=== PATIENT | male | born 1960 | race Caucasian/White ===

== ENCOUNTER 2018-02-17 09:48 | Emergency (ER) | payer OTHER ==
[~2018-02-17] VITALS: Ht 188 cm; Wt 117.9 kg
[~2018-02-17 09:48] MED LIST: AMLO5; CARV25; CARV25 PO; DIGO.125 PO; DIGO.25; FURO20; LORA10 PO; Prinivil10 MG PO; SPIR25; SPIR25 PO; TORSE20 PO; Toprol Xl50 MG PO; WARF5
[2018-02-17 10:35] LABS: BASOPHILS ABSOLUTE AUTO 0.02 K/mm3 (0.00-0.23); BASOPHILS PERCENT AUTO 0 % (0-2); EOSINOPHILS ABSOLUTE AUTO 0.12 K/mm3 (0.00-0.68); EOSINOPHILS PERCENT AUTO 2 % (0-6); Hematocrit 38.1 % (37.0-53.0); Hemoglobin 12.3 g/dL (13.5-17.5); IMMATURE GRAN ABSOLUTE AUTO 0.02 K/mm3 (0.00-0.10); IMMATURE GRAN PERCENT AUTO 0 % (0-1); LYMPHOCYTES ABSOLUTE AUTO 1.66 K/mm3 (0.84-5.20); LYMPHOCYTES PERCENT AUTO 22 % (21-46); MONOCYTES ABSOLUTE AUTO 0.59 K/mm3 (0.16-1.47); MONOCYTES PERCENT AUTO 8 % (4-13); Mean Corpuscular HGB 31.7 pg (26.0-34.0); Mean Corpuscular HGB Conc 32.3 g/dL (31.5-36.5); Mean Corpuscular Volume 98 fL (80-100); Mean Platelet Volume 10.1 fL (9.1-12.4); NEUTROPHILS ABSOLUTE AUTO 5.19 K/mm3 (1.96-9.15); NEUTROPHILS PERCENT AUTO 68 % (41-73); Platelet Count 169 K/mm3 (150-400); RDW Coefficient Variation 13.3 % (11.7-14.2); RDW Standard Deviation 48.4 fL (35.1-46.3); Red Blood Cell Count 3.88 M/mm3 (4.30-5.90)
[2018-02-17 10:47] LABS: International Normalized Ratio 2.61
[2018-02-17 10:54] LABS: Alanine Aminotransfer (ALT/SGP 22 U/L (12-78); Albumin, Blood 3.5 g/dL (3.4-5.0); Albumin/Globulin Ratio 0.9 (0.8-1.8); Alk Phos 67 U/L (50-136); Anion Gap 5 mmol/L (6-16); Aspartate Aminotrans (AST/SGOT 21 U/L (12-37); Bilirubin, Total 0.6 mg/dL (0.1-1.0); Blood Urea Nitrogen 16 mg/dL (8-24); Bun/Creatinine Ratio 24.6 (12.0-20.0); CO2, Blood 32 mmol/L (21-32); Calcium, Blood 8.5 mg/dL (8.5-10.1); Chloride, Blood 100 mmol/L (98-108); Creatinine, Blood 0.65 mg/dL (0.60-1.20); Globulin, Blood 3.7 g/dL (2.2-4.0); Glomerular Filtration Rate >60 (60-); Glucose, Blood 134 mg/dL (70-99); Potassium, Blood 4.1 mmol/L (3.5-5.5); Sodium, Blood 137 mmol/L (136-145); Total Protein, Blood 7.2 g/dL (6.4-8.2)
== END 2018-02-17 11:40 | disposition home or self-care (01) ==
LOC: ER 09:48
PROVIDERS: Emergency Medicine
DX: R20.0 Anesthesia of skin (principal); I48.91 Unspecified atrial fibrillation; Z88.0 Allergy status to penicillin; Z79.01 Long term (current) use of anticoagulants; Z79.899 Other long term (current) drug therapy; Z86.73 Personal history of transient ischemic attack (TIA), and cerebral infarction without residual deficits
CPT/HCPCS: 36415; 70450; 71045; 80053; 85025; 85610; 93005; 93010; 99284

== ENCOUNTER → 2019-01-05 | Outpatient (CLI) | payer OTHER ==
[2019-01-05 12:48] LABS: BASOPHILS ABSOLUTE AUTO 0.02 K/mm3 (0.00-0.23); BASOPHILS PERCENT AUTO 0 % (0-2); EOSINOPHILS ABSOLUTE AUTO 0.11 K/mm3 (0.00-0.68); EOSINOPHILS PERCENT AUTO 2 % (0-6); Hematocrit 40.7 % (37.0-53.0); Hemoglobin 13.4 g/dL (13.5-17.5); IMMATURE GRAN ABSOLUTE AUTO 0.02 K/mm3 (0.00-0.10); IMMATURE GRAN PERCENT AUTO 0 % (0-1); LYMPHOCYTES ABSOLUTE AUTO 1.36 K/mm3 (0.84-5.20); LYMPHOCYTES PERCENT AUTO 18 % (21-46); MONOCYTES ABSOLUTE AUTO 0.55 K/mm3 (0.16-1.47); MONOCYTES PERCENT AUTO 7 % (4-13); Mean Corpuscular HGB 32.4 pg (26.0-34.0); Mean Corpuscular HGB Conc 32.9 g/dL (31.5-36.5); Mean Corpuscular Volume 98 fL (80-100); NEUTROPHILS ABSOLUTE AUTO 5.49 K/mm3 (1.96-9.15); NEUTROPHILS PERCENT AUTO 73 % (41-73); Platelet Count 162 K/mm3 (150-400); RDW Coefficient Variation 13.8 % (11.7-14.2); RDW Standard Deviation 50.2 fL (35.1-46.3); Red Blood Cell Count 4.14 M/mm3 (4.30-5.90); White Blood Cell Count 7.55 K/mm3 (4.00-11.30)
[2019-01-05 13:02] LABS: Alanine Aminotransfer (ALT/SGP 30 U/L (12-78); Albumin/Globulin Ratio 1.1 (0.8-1.8); Alk Phos 77 U/L (40-126); Anion Gap 7 mmol/L (6-16); Aspartate Aminotrans (AST/SGOT 27 U/L (12-37); Bilirubin, Total 0.9 mg/dL (0.1-1.0); Blood Urea Nitrogen 24 mg/dL (8-24); Bun/Creatinine Ratio 28.9 (12.0-20.0); CO2, Blood 34 mmol/L (21-32); Calcium, Blood 8.4 mg/dL (8.5-10.1); Chloride, Blood 99 mmol/L (98-108); Creatinine, Blood 0.83 mg/dL (0.60-1.20); Globulin, Blood 3.5 g/dL (2.2-4.0); Glomerular Filtration Rate >60 (60-); Glucose, Blood 128 mg/dL (70-99); Potassium, Blood 4.2 mmol/L (3.5-5.5); Sodium, Blood 140 mmol/L (136-145); Total Protein, Blood 7.5 g/dL (6.4-8.2); Troponin I 0.022 ng/mL (0.000-0.040)
[2019-01-05 13:36] LABS: International Normalized Ratio 1.55; Prothrombin Time Results 15.8 Sec (9.7-11.5)
[2019-01-05 13:50] LABS: Digoxin (Lanoxin) 0.41 ug/mL (0.80-2.00)
== END ==
LOC: LAB EV 12:39 → LAB SHORT 12:39
PROVIDERS: Emergency Medicine
DX: R06.02 Shortness of breath (principal)
CPT/HCPCS: 80053; 80162; 83880; 84484; 85025; 85379; 85610; 85730

== ENCOUNTER → 2019-01-14 | Outpatient (CLI) | payer OTHER ==
[2019-01-14 09:36] LABS: BASOPHILS ABSOLUTE AUTO 0.02 K/mm3 (0.00-0.23); BASOPHILS PERCENT AUTO 0 % (0-2); EOSINOPHILS ABSOLUTE AUTO 0.12 K/mm3 (0.00-0.68); EOSINOPHILS PERCENT AUTO 2 % (0-6); Hematocrit 40.7 % (37.0-53.0); Hemoglobin 13.1 g/dL (13.5-17.5); IMMATURE GRAN ABSOLUTE AUTO 0.02 K/mm3 (0.00-0.10); IMMATURE GRAN PERCENT AUTO 0 % (0-1); LYMPHOCYTES ABSOLUTE AUTO 1.26 K/mm3 (0.84-5.20); LYMPHOCYTES PERCENT AUTO 21 % (21-46); MONOCYTES ABSOLUTE AUTO 0.38 K/mm3 (0.16-1.47); MONOCYTES PERCENT AUTO 6 % (4-13); Mean Corpuscular HGB 31.9 pg (26.0-34.0); Mean Corpuscular HGB Conc 32.2 g/dL (31.5-36.5); Mean Corpuscular Volume 99 fL (80-100); Mean Platelet Volume 9.8 fL (9.1-12.4); NEUTROPHILS ABSOLUTE AUTO 4.15 K/mm3 (1.96-9.15); NEUTROPHILS PERCENT AUTO 70 % (41-73); Platelet Count 154 K/mm3 (150-400); RDW Coefficient Variation 13.5 % (11.7-14.2); RDW Standard Deviation 49.2 fL (35.1-46.3); Red Blood Cell Count 4.11 M/mm3 (4.30-5.90); White Blood Cell Count 5.95 K/mm3 (4.00-11.30)
[2019-01-14 10:05] LABS: Alanine Aminotransfer (ALT/SGP 32 U/L (12-78); Albumin/Globulin Ratio 1.1 (0.8-1.8); Alk Phos 83 U/L (40-126); Anion Gap 8 mmol/L (6-16); Aspartate Aminotrans (AST/SGOT 24 U/L (12-37); Bilirubin, Total 0.3 mg/dL (0.1-1.0); Blood Urea Nitrogen 22 mg/dL (8-24); Bun/Creatinine Ratio 25.6 (12.0-20.0); CO2, Blood 32 mmol/L (21-32); Calcium, Blood 9.3 mg/dL (8.5-10.1); Chloride, Blood 98 mmol/L (98-108); Creatinine, Blood 0.86 mg/dL (0.60-1.20); Globulin, Blood 3.5 g/dL (2.2-4.0); Glomerular Filtration Rate >60 (60-); Glucose, Blood 195 mg/dL (70-99); Potassium, Blood 4.4 mmol/L (3.5-5.5); Sodium, Blood 138 mmol/L (136-145); Thyroid Stimulating Hormone 1.539 uIU/mL (0.360-4.800); Total Protein, Blood 7.5 g/dL (6.4-8.2)
[2019-01-14 10:45] LABS: Digoxin (Lanoxin) 0.39 ug/mL (0.80-2.00)
== END | disposition home or self-care (01) ==
LOC: LAB EV 09:30 → LAB SHORT 09:30
PROVIDERS: Physician Assistant Medical
DX: R53.83 Other fatigue (principal); R06.00 Dyspnea, unspecified
CPT/HCPCS: 80053; 80162; 84443; 85025

== ENCOUNTER 2019-04-20 09:06 | Inpatient (IN) | payer OTHER ==
[~2019-04-20] VITALS: Ht 182.9 cm; Wt 120.5 kg
[~2019-04-20 09:06] MED LIST changes: -DIGO.125 PO; +LANOXIN250 MCG PO; -WARF5; +WARF5 PO
[2019-04-20 10:04] LABS: BASOPHILS ABSOLUTE AUTO 0.01 K/mm3 (0.00-0.23); BASOPHILS PERCENT AUTO 0 % (0-2); EOSINOPHILS ABSOLUTE AUTO 0.08 K/mm3 (0.00-0.68); EOSINOPHILS PERCENT AUTO 1 % (0-6); Hematocrit 40.1 % (37.0-53.0); Hemoglobin 12.3 g/dL (13.5-17.5); IMMATURE GRAN ABSOLUTE AUTO 0.01 K/mm3 (0.00-0.10); IMMATURE GRAN PERCENT AUTO 0 % (0-1); LYMPHOCYTES ABSOLUTE AUTO 1.13 K/mm3 (0.84-5.20); LYMPHOCYTES PERCENT AUTO 15 % (21-46); MONOCYTES ABSOLUTE AUTO 0.52 K/mm3 (0.16-1.47); MONOCYTES PERCENT AUTO 7 % (4-13); Mean Corpuscular HGB 31.3 pg (26.0-34.0); Mean Corpuscular HGB Conc 30.7 g/dL (31.5-36.5); Mean Corpuscular Volume 102 fL (80-100); Mean Platelet Volume 10.3 fL (9.1-12.4); NEUTROPHILS ABSOLUTE AUTO 5.72 K/mm3 (1.96-9.15); NEUTROPHILS PERCENT AUTO 77 % (41-73); Platelet Count 153 K/mm3 (150-400); RDW Coefficient Variation 13.9 % (11.7-14.2); RDW Standard Deviation 52.1 fL (35.1-46.3); Red Blood Cell Count 3.93 M/mm3 (4.30-5.90); White Blood Cell Count 7.47 K/mm3 (4.00-11.30)
[2019-04-20 10:18] LABS: International Normalized Ratio 3.52; Prothrombin Time Results 33.3 Sec (9.7-11.5)
[2019-04-20 10:19] LABS: Alanine Aminotransfer (ALT/SGP 34 U/L (12-78); Albumin, Blood 3.6 g/dL (3.4-5.0); Alk Phos 73 U/L (50-136); Anion Gap 3 mmol/L (6-16); Aspartate Aminotrans (AST/SGOT 28 U/L (12-37); Bilirubin, Total 0.5 mg/dL (0.1-1.0); Blood Urea Nitrogen 14 mg/dL (8-24); Bun/Creatinine Ratio 21.1 (12.0-20.0); CO2, Blood 32 mmol/L (21-32); Calcium, Blood 8.3 mg/dL (8.5-10.1); Chloride, Blood 105 mmol/L (98-108); Creatinine, Blood 0.67 mg/dL (0.60-1.20); Globulin, Blood 3.6 g/dL (2.2-4.0); Glomerular Filtration Rate >60 (60-); Glucose, Blood 162 mg/dL (70-99); Potassium, Blood 4.6 mmol/L (3.5-5.5); Sodium, Blood 140 mmol/L (136-145); Total Protein, Blood 7.2 g/dL (6.4-8.2); Troponin I <0.015 ng/mL (0.000-0.040)
[2019-04-20 10:20] LABS: Base Excess Venous 6.4 mmol/L; Bicarbonate Venous 29.1 mmol/L (24.0-30.0); PCO2 Venous 53.7 mmHg (38-42); PO2 Venous 158 mmHg (38-42); pH Blood Venous 7.38 (7.34-7.37)
[2019-04-20 10:32] LABS: Digoxin (Lanoxin) 0.39 ug/mL (0.80-2.00)
[2019-04-20] MEDS ORDERED: LISI5 PO (11:15)
[2019-04-20] MEDS ORDERED: SIMV40 PO (11:19)
[2019-04-20] MEDS ORDERED: PARO20 PO (11:20)
[2019-04-20] MEDS ORDERED: CLARITIN10 MG PO (12:39)
[2019-04-20 16:22] LABS: PCO2 Arterial 67.8 mmHg (35-45); PO2 Arterial 59.8 mmHg (80-100); pH Blood Arterial 7.33 (7.35-7.45)
--- NOTE | 2019-04-20 18:04 | NUR ---
TRANSFER NOTE RECEIVED REPORT FROM ED NURSE ZULMA. 59 YR OLD MALE ADMITTED FOR CHF EXACERBATION/SOB. FULL CODE. FLUID OVERLOAD DUE TO FORGETTING DIURETICS FOR 3-4 DAYS. CARDIAC DIET. CO2 WAS 54, NOW 59.8 - PT PUT ON CPAP W/3 LPM O2 BLEED IN. CONTINUOUS PULSE OX. O2 SAT IS NOW 94%. PT IS INDEPENDENT, LIVES AT HOME W/FAMILY. ON WARFARIN. SCD'S FOR DVT PREVENTION. PACEMAKER IN 10/25/07. HX:CHF, BPH, CARDIOMYOPATHY, AFIB, PAVAN, HYPERLIPIDEMIA. MOUTH BREATHER. USES CPAP W/3 LPM O2 BLEED IN AT NIGHT. ROOM AIR DURING DAYTIME. PT TRANSFERED TO FLOOR WNL. ORIENTED TO UNIT.
--- NOTE | 2019-04-21 04:02 | NUR ---
NOC SHIFT SUMMARY PT IS PLEASANT AND COOPERATIVE WITH CARE. ADMITTED FOR CHF EXACERBATION/FLUID OVERLOAD AFTER NOT TAKING DIURETIC FOR PRIOR 4 DAYS. ON TELE SHOWS AFIB RATE 88 ON LAST CHECK. USES CPAP WITH 3L O2 BLEED IN. PT HAS SLEPT MOST OF NIGHT. NO COMPLAINTS OF PAIN OR DISCOMFORT. AAOX4. RESP ARE EVEN AND UNLABORED. PRESENTLY APPEARS TO BE SLEEPING AND IN NO ACUTE DISTRESS. VSS. WILL CONTINUE TO MONITOR.
[2019-04-21 05:35] LABS: BASOPHILS ABSOLUTE AUTO 0.02 K/mm3 (0.00-0.23); BASOPHILS PERCENT AUTO 0 % (0-2); EOSINOPHILS ABSOLUTE AUTO 0.11 K/mm3 (0.00-0.68); EOSINOPHILS PERCENT AUTO 1 % (0-6); Hematocrit 41.8 % (37.0-53.0); Hemoglobin 12.8 g/dL (13.5-17.5); IMMATURE GRAN ABSOLUTE AUTO 0.04 K/mm3 (0.00-0.10); IMMATURE GRAN PERCENT AUTO 0 % (0-1); LYMPHOCYTES ABSOLUTE AUTO 1.26 K/mm3 (0.84-5.20); LYMPHOCYTES PERCENT AUTO 14 % (21-46); MONOCYTES ABSOLUTE AUTO 0.69 K/mm3 (0.16-1.47); MONOCYTES PERCENT AUTO 8 % (4-13); Mean Corpuscular HGB Conc 30.6 g/dL (31.5-36.5); Mean Platelet Volume 10.2 fL (9.1-12.4); NEUTROPHILS ABSOLUTE AUTO 6.83 K/mm3 (1.96-9.15); NEUTROPHILS PERCENT AUTO 76 % (41-73); Platelet Count 156 K/mm3 (150-400); RDW Standard Deviation 54.1 fL (35.1-46.3); White Blood Cell Count 8.95 K/mm3 (4.00-11.30)
[2019-04-21 05:36] LABS: Mean Corpuscular Volume 105 fL (80-100)
[2019-04-21 05:57] LABS: Anion Gap 3 mmol/L (6-16); Blood Urea Nitrogen 15 mg/dL (8-24); Bun/Creatinine Ratio 20.9 (12.0-20.0); CO2, Blood 36 mmol/L (21-32); Calcium, Blood 8.1 mg/dL (8.5-10.1); Chloride, Blood 100 mmol/L (98-108); Creatinine, Blood 0.72 mg/dL (0.60-1.20); Glomerular Filtration Rate >60 (60-); Glucose, Blood 113 mg/dL (70-99); Potassium, Blood 4.6 mmol/L (3.5-5.5); Sodium, Blood 139 mmol/L (136-145)
[2019-04-21 09:50] LABS: International Normalized Ratio 3.55; Prothrombin Time Results 33.5 Sec (9.7-11.5)
--- NOTE | 2019-04-21 11:18 | NUR ---
8 BEATS VTACH [employer], COLBY MEEK CALLED & INFORMED THIS RN OF 8 BEATS OF VTACH FOR THE PT. PT REMIANS A SYMPTOMATIC & CONVERTED BACK TO AFIB, WHICH WAS PREVIOUS RHYTHM BEFORE THE BEATS OF VTACH. DR. AGUERO CALLED & NOTIFIED OF EVENT. WILL CONTINUE TO MONITOR.
--- NOTE | 2019-04-21 18:06 | NUR ---
SHIFT SUMMARY PT INSTRUCTED ON THIS IMPORTANCE OF VOIDING IN URINAL SO ACCURATE OUTPUT CAN BE CALULATED. PT AGREED. MORNING DOSE OF CARVEILOL HELD DUE TO SBP 108. DR. RAYA AWARE & STATED SHE WILL REVIEW MEDICATION DOSES. EVENING DOSE GIVEN. NO OTHER CHANGES IN ASSESSMENT AT THIS TIME. VSS. WILL CONTINUE TO MONITOR UNTIL TURNOVER IS COMPLETE
--- NOTE | 2019-04-22 04:45 | NUR ---
JAVA TECHNICAL ARCHITECT SUMMARY NO ACUTE CHANGES THIS SHIFT. PT AAOX4 AND COOPERATIVE WITH CARE. INDEPENDENT TO THE BATHROOM. PT HAS VOIDED SEVERAL TIMES THROUGH THE NIGHT AND IS IN A NEGATIVE FLUID BALANCE AT THIS POINT. DENIES PAIN, N/V. ON 3L O2 VIA NC WHILE AWAKE AND USES CPAP AT NIGHT, O2 SATS MAINTAINING OVER 90% BUT DO DROP DOWN TO 80'S AT TIMES WITH AMBULATION. OTHER VSS, WILL CONTINUE TO MONITOR
[2019-04-22 05:17] LABS: International Normalized Ratio 2.51; Prothrombin Time Results 24.5 Sec (9.7-11.5)
--- NOTE | 2019-04-22 08:56 | NUR ---
[address] RAYA CALLED & NOTIFIED OF PT EPISODE OF [address] RAYA INFORMED THAT PT COREG WAS HELD DUE TO HYPOTENSION SBP 91. DR. RAYA TO CHANGE COREG DOSAGE TO 12.5 BID & OK TO GIVE WITH CURRENT BP. PT ASYMPTOMATIC & HAS CONVERTED BACK TO AFIB IN THE 80-90S. WILL CONTINUE TO MONITOR.
--- NOTE | 2019-04-22 16:27 | NUR ---
DR DOWNS'S OFFICE NOTIFIED OF CONSULT.
[2019-04-22 16:33] LABS: PCO2 Arterial 82.8 mmHg (35-45); PO2 Arterial 105 mmHg (80-100); pH Blood Arterial 7.32 (7.35-7.45)
[2019-04-22 16:49] LABS: BASOPHILS ABSOLUTE AUTO 0.02 K/mm3 (0.00-0.23); BASOPHILS PERCENT AUTO 0 % (0-2); EOSINOPHILS ABSOLUTE AUTO 0.06 K/mm3 (0.00-0.68); EOSINOPHILS PERCENT AUTO 1 % (0-6); Hematocrit 40.8 % (37.0-53.0); Hemoglobin 12.2 g/dL (13.5-17.5); IMMATURE GRAN ABSOLUTE AUTO 0.02 K/mm3 (0.00-0.10); IMMATURE GRAN PERCENT AUTO 0 % (0-1); LYMPHOCYTES ABSOLUTE AUTO 1.48 K/mm3 (0.84-5.20); LYMPHOCYTES PERCENT AUTO 16 % (21-46); MONOCYTES PERCENT AUTO 12 % (4-13); Mean Corpuscular HGB 31.9 pg (26.0-34.0); Mean Corpuscular HGB Conc 29.9 g/dL (31.5-36.5); Mean Corpuscular Volume 107 fL (80-100); Mean Platelet Volume 9.9 fL (9.1-12.4); NEUTROPHILS ABSOLUTE AUTO 6.53 K/mm3 (1.96-9.15); NEUTROPHILS PERCENT AUTO 71 % (41-73); Platelet Count 156 K/mm3 (150-400); RDW Coefficient Variation 13.6 % (11.7-14.2); Red Blood Cell Count 3.82 M/mm3 (4.30-5.90); White Blood Cell Count 9.21 K/mm3 (4.00-11.30)
[2019-04-22 17:01] LABS: Alanine Aminotransfer (ALT/SGP 26 U/L (12-78); Albumin, Blood 3.5 g/dL (3.4-5.0); Alk Phos 66 U/L (50-136); Anion Gap 1 mmol/L (6-16); Aspartate Aminotrans (AST/SGOT 16 U/L (12-37); Bilirubin, Total 0.6 mg/dL (0.1-1.0); Blood Urea Nitrogen 22 mg/dL (8-24); Bun/Creatinine Ratio 26.1 (12.0-20.0); CO2, Blood 40 mmol/L (21-32); Calcium, Blood 8.5 mg/dL (8.5-10.1); Chloride, Blood 96 mmol/L (98-108); Creatinine, Blood 0.84 mg/dL (0.60-1.20); Globulin, Blood 3.5 g/dL (2.2-4.0); Glomerular Filtration Rate >60 (60-); Glucose, Blood 106 mg/dL (70-99); Potassium, Blood 4.2 mmol/L (3.5-5.5); Sodium, Blood 137 mmol/L (136-145)
--- NOTE | 2019-04-22 17:25 | NUR ---
SHIFT SUMMARY/CRITICAL PCO2 PT HAD CRITICAL PCO2 OF 82.8. SILK SCREEN PROCESSOR, MAAME WILLS & DR. RAYA NOTIFIED. DR. RAYA ORDERED TO TITRATE O2 DOWN MUCH POSSIBLE. PT NOW TOLERATING 3L O2 VIA HIGH FLOW NC. CHEST X RAY COMPLETED. & CARDIO CONSULT PLACED. NO OTHER CHANGES IN ASSESSMENT. VSS. WILL CONTINUE TO MONITOR UNTIL TURNOVER IS COMPLETE.
[2019-04-22 18:38] LABS: Troponin I <0.015 ng/mL (0.000-0.040)
[2019-04-22 18:39] LABS: Thyroid Stimulating Hormone 0.989 uIU/mL (0.360-4.800)
[2019-04-23 04:54] LABS: BASOPHILS ABSOLUTE AUTO 0.01 K/mm3 (0.00-0.23); BASOPHILS PERCENT AUTO 0 % (0-2); EOSINOPHILS ABSOLUTE AUTO 0.07 K/mm3 (0.00-0.68); EOSINOPHILS PERCENT AUTO 1 % (0-6); Hemoglobin 12.7 g/dL (13.5-17.5); IMMATURE GRAN ABSOLUTE AUTO 0.03 K/mm3 (0.00-0.10); IMMATURE GRAN PERCENT AUTO 0 % (0-1); LYMPHOCYTES ABSOLUTE AUTO 1.41 K/mm3 (0.84-5.20); LYMPHOCYTES PERCENT AUTO 15 % (21-46); MONOCYTES ABSOLUTE AUTO 0.79 K/mm3 (0.16-1.47); MONOCYTES PERCENT AUTO 9 % (4-13); Mean Corpuscular HGB Conc 30.2 g/dL (31.5-36.5); Mean Corpuscular Volume 106 fL (80-100); Mean Platelet Volume 9.9 fL (9.1-12.4); NEUTROPHILS ABSOLUTE AUTO 6.86 K/mm3 (1.96-9.15); NEUTROPHILS PERCENT AUTO 75 % (41-73); Platelet Count 152 K/mm3 (150-400); RDW Coefficient Variation 13.4 % (11.7-14.2); RDW Standard Deviation 52.8 fL (35.1-46.3); Red Blood Cell Count 3.97 M/mm3 (4.30-5.90); White Blood Cell Count 9.17 K/mm3 (4.00-11.30)
[2019-04-23 05:07] LABS: International Normalized Ratio 2.07; Prothrombin Time Results 20.5 Sec (9.7-11.5)
[2019-04-23 05:16] LABS: Anion Gap 2 mmol/L (6-16); Blood Urea Nitrogen 18 mg/dL (8-24); Bun/Creatinine Ratio 27.4 (12.0-20.0); CHOL/HDL RATIO 2.1; CO2, Blood 40 mmol/L (21-32); Calcium, Blood 8.2 mg/dL (8.5-10.1); Chloride, Blood 95 mmol/L (98-108); Cholesterol 77 mg/dL (50-200); Creatinine, Blood 0.66 mg/dL (0.60-1.20); Glomerular Filtration Rate >60 (60-); Glucose, Blood 114 mg/dL (70-99); HDL Cholesterol 37 mg/dL (>39); LDL/HDL RATIO 0.8; Low Density Lipoprotein Chol 29 mg/dL (0-110); Potassium, Blood 4.1 mmol/L (3.5-5.5); Sodium, Blood 137 mmol/L (136-145); Triglycerides 56 mg/dL (30-160); Very Low Density Lipoprot Chol 11 mg/dL (6-32)
--- NOTE | 2019-04-23 06:50 | NUR ---
cpap, call light in reach, sitting up to help breathe most of the shift, denied pain, no major change in condition during shift. will continue to monitor and treat until complete bsr with day staff.
--- NOTE | 2019-04-23 17:36 | NUR ---
SHIFT SUMMARY 59 YR OLD MALE ADMITTED FOR CHF EXACERBATION. FULL CODE. 20 RT AC. 3 LPM O2, CPAP AT NIGHT. PT SEEN BY CARDIOLOGY CONSULT TODAY. TELE SHOWS AFIB RUNNING AT 79 BPM W/PVCS - THE PT'S NORMAL TREND. INDEPENDENT IN ROOM. 2 G LOW SODIUM DIET. HX: BPH, CHF, AFIB, DEFIBRILLATOR IMPLANT, PAVAN. PT WILL DC HOME, DO AN OUTPT STRESS TEST
[2019-04-24 05:20] LABS: International Normalized Ratio 1.98; Prothrombin Time Results 19.7 Sec (9.7-11.5)
--- NOTE | 2019-04-24 06:44 | NUR ---
much more interactive and animated today than yesterday, call light in reach, 2L 02 when not on cpap or d-sats, saline locked, will continue to monitor and carefor until complete bsr with day staff.
[2019-04-24 07:07] LABS: Anion Gap 2 mmol/L (6-16); Blood Urea Nitrogen 20 mg/dL (8-24); Bun/Creatinine Ratio 33.2 (12.0-20.0); CO2, Blood 41 mmol/L (21-32); Calcium, Blood 8.6 mg/dL (8.5-10.1); Chloride, Blood 96 mmol/L (98-108); Glomerular Filtration Rate >60 (60-); Glucose, Blood 113 mg/dL (70-99); Potassium, Blood 3.8 mmol/L (3.5-5.5); Sodium, Blood 139 mmol/L (136-145)
[2019-04-24] MEDS ORDERED: CARV25 PO (14:30)
[2019-04-24] MEDS ORDERED: ATOR40TA PO (14:34)
[2019-04-24] MEDS ORDERED: ENTRESTO 24 MG1 EACH PO (14:37)
--- NOTE | 2019-04-24 15:55 | NUR ---
DISCHARGE NOTE IV DC'D WNL. PT PROVIDED W/HARDCOPY AND VERBAL INSTRUCTIONS FOR DC RE: DIAGNOSES, DISCHARGE MEDICATIONS, AND FOLLOW UP APPOINTMENTS. JOSE MARTIN ARRIVED W/O2. HOME O2 EVAL PERFORMED. MEDS FAXED TO PREFERED PHARMACY. PT DRESSED IN PERSONAL CLOTHES, PERSONAL POSSESSIONS GATHERED. PT ASSISTED OUT BY BLOOD SPLATTER ANALYST VIA WHEELCHAIR. PT HAD NO FURTHER QUESTIONS
== END 2019-04-24 15:26 | disposition home or self-care (01) | DRG 291 ==
LOC: ER 09:06 → MEDS 09:07 → ERHOLD 09:07 → MEDS 16:28
PROVIDERS: Emergency Medicine; Internal Medicine; Internal Medicine Cardiovascular Disease; ADMIT Family Medicine
DX: I11.0 Hypertensive heart disease with heart failure (principal); J96.21 Acute and chronic respiratory failure with hypoxia; J96.22 Acute and chronic respiratory failure with hypercapnia; I47.2 Ventricular tachycardia; I50.23 Acute on chronic systolic (congestive) heart failure; I48.2 Chronic atrial fibrillation; Z79.01 Long term (current) use of anticoagulants; G47.33 Obstructive sleep apnea (adult) (pediatric); I27.20 Pulmonary hypertension, unspecified; E78.5 Hyperlipidemia, unspecified; E66.9 Obesity, unspecified; Z91.14 Patient's other noncompliance with medication regimen; I95.9 Hypotension, unspecified; F10.10 Alcohol abuse, uncomplicated; Z95.810 Presence of automatic (implantable) cardiac defibrillator; Z86.73 Personal history of transient ischemic attack (TIA), and cerebral infarction without residual deficits; E87.6 Hypokalemia; Z68.35 Body mass index [BMI] 35.0-35.9, adult
CPT/HCPCS: 36415; 36600; 71045; 71046; 80048; 80053; 80061; 80162; 82803; 83880; 84443; 84484; 85025; 85379; 85610; 93005; 93010; 93306; 94660; 94761; 94762; 96374; 96375; 96376; 98960; 99285-25; A9270; G0378; J1940; J2405

== ENCOUNTER 2019-06-18 10:44 | Day surgery (SDC) | payer OTHER ==
[~2019-06-18] VITALS: Ht 182.9 cm; Wt 116.0 kg
[~2019-06-18 10:44] MED LIST changes: +ATOR40TA PO; +CLARITIN10 MG PO; +ENTRESTO 24 MG1 EACH PO; +LISI5 PO; +PARO20 PO; +SIMV40 PO
[2019-06-18 12:19] LABS: International Normalized Ratio 1.63; Prothrombin Time Results 16.5 Sec (9.7-11.5)
--- NOTE | 2019-06-18 16:30 | NUR ---
PT DISCHARGE INSTRUCTIONS GONE OVER WITH PT AND MOTHER, BOTH VERBALIZE UNDERSTANDING. SITE WITHOUT BLEEDING, DOT DRESSING IN PLACE. PT DISCHARGED PER W/C WITH NURSE TO PRIVATE VEHICLE.
== END 2019-06-18 16:30 | disposition home or self-care (01) ==
LOC: MHTC 10:44
PROVIDERS: Internal Medicine Cardiovascular Disease
DX: I25.10 Atherosclerotic heart disease of native coronary artery without angina pectoris (principal); I42.9 Cardiomyopathy, unspecified; I11.0 Hypertensive heart disease with heart failure; I50.22 Chronic systolic (congestive) heart failure; I27.20 Pulmonary hypertension, unspecified; I48.91 Unspecified atrial fibrillation; G47.33 Obstructive sleep apnea (adult) (pediatric); E78.5 Hyperlipidemia, unspecified; E66.9 Obesity, unspecified; Z86.73 Personal history of transient ischemic attack (TIA), and cerebral infarction without residual deficits; Z99.89 Dependence on other enabling machines and devices; Z79.01 Long term (current) use of anticoagulants; Z79.899 Other long term (current) drug therapy; Z88.0 Allergy status to penicillin; Z68.34 Body mass index [BMI] 34.0-34.9, adult
CPT/HCPCS: 36415; 85610; 93458; 99152; 99153; C1769; C1894; J1644; J2250; J3010; J7030; Q9967

== ENCOUNTER 2023-08-05 08:41 | Inpatient (IN) | payer MEDICARE, OTHER ==
[~2023-08-05] VITALS: Ht 182.9 cm; Wt 111.1 kg
[~2023-08-05 08:41] MED LIST changes: -CLARITIN10 MG PO; +LORA10ER PO
[2023-08-05 10:33] LABS: BASOPHILS ABSOLUTE AUTO 0.04 K/mm3 (0.00-0.23); BASOPHILS PERCENT AUTO 0 % (0-2); EOSINOPHILS ABSOLUTE AUTO 0.03 K/mm3 (0.00-0.68); EOSINOPHILS PERCENT AUTO 0 % (0-6); Hematocrit 43.5 % (37.0-53.0); Hemoglobin 13.9 g/dL (13.5-17.5); IMMATURE GRAN ABSOLUTE AUTO 0.05 K/mm3 (0.00-0.10); IMMATURE GRAN PERCENT AUTO 0 % (0-1); LYMPHOCYTES ABSOLUTE AUTO 1.29 K/mm3 (0.84-5.20); LYMPHOCYTES PERCENT AUTO 9 % (21-46); MONOCYTES ABSOLUTE AUTO 0.56 K/mm3 (0.16-1.47); MONOCYTES PERCENT AUTO 4 % (4-13); Mean Corpuscular HGB 30.2 pg (26.0-34.0); Mean Corpuscular Volume 95 fL (80-100); Mean Platelet Volume 10.4 fL (9.1-12.4); NEUTROPHILS ABSOLUTE AUTO 12.23 K/mm3 (1.96-9.15); NEUTROPHILS PERCENT AUTO 86 % (41-73); Platelet Count 261 K/mm3 (150-400); RDW Coefficient Variation 13.7 % (11.7-14.2); RDW Standard Deviation 47.5 fL (35.1-46.3)
[2023-08-05] MEDS ORDERED: LISINOPRIL2.5 MG PO (10:36)
[2023-08-05 10:56] LABS: Albumin, Blood 3.9 g/dL (3.4-5.0); Bilirubin, Total 0.7 mg/dL (0.1-1.0); Bun/Creatinine Ratio 18.9 (12.0-20.0); Calcium, Blood 9.2 mg/dL (8.5-10.1); Creatinine, Blood 0.9 mg/dL (0.60-1.20); Globulin, Blood 4.1 g/dL (2.2-4.0); Potassium, Blood 3.6 mmol/L (3.5-5.5)
[2023-08-05 13:04] LABS: Source, Urine Clean Catch
[2023-08-05 13:08] LABS: Appearance, Urine Clear (Clear); Bilirubin, Urine Neg (Neg); Blood, Urine Neg (Neg); Color, Urine Yellow (P-Yellow); Glucose Qualitative, Urine Neg (Neg); Ketones, Urine Neg (Neg); Leukocyte Esterase, Urine Neg (Neg); Nitrite, Urine Neg (Neg); Protein, Urine 2+ (Neg); Urobilinogen, Urine NORM (Normal)
[2023-08-05 13:28] LABS: Bacteria Not Seen /hpf; Red Blood Cells, Urine Not Seen /hpf (0-2); Squamous Epithelial Cells Not Seen /hpf (Few); White Blood Cells, Urine 0-2 /hpf (0-5)
[2023-08-05 16:29] VITALS: BP 104/82
[2023-08-05 16:33] LABS: Anti-Xa UFH, PHA Monitoring <0.10 IU/mL; International Normalized Ratio 2.52; Prothrombin Time Results 25.1 Sec (9.7-11.5)
[2023-08-05] MEDS ORDERED: Coumadin2.5 MG PO (17:00)
--- NOTE | 2023-08-05 17:13 | NUR ---
Pt arrived to 341 via wheelchair with brother in attendence, a/ox4, pleasant and cooperative with care, follows commands well, denies pain at this time, lungs are clear t/o, resp even and unlabored, no cough noted, hrirr, pt has an implanted aicd but states it's turned off, no edema noted, ppp +1, piv to rac, site is clear and patent, btx4, reports reg bowel/bladder, skin c/w/d, tom fitzpatrick, up indep in room. oriented to room layout and call system, call light in reach.
[2023-08-06 03:37] VITALS: BP 124/72
--- NOTE | 2023-08-06 04:29 | NUR ---
SHIFT SUMMARY A/OX4. ROOM AIR, CPAP AT NIGHT. CONTINUOUS PULSE OX. INDEPENDENT IN ROOM. DENIES CHEST PAIN, SOB. PT IS A HARD STICK WILL POSSIBLY NEED A POWERGLIDE PENDING POSSIBLE SURGERY. PRN OXYCODONE GIVEN X1 FOR ABDOMINAL PAIN. TRENDING LACTIC, NOW NORMAL. PENDING HEPARIN DRIP ONCE INR IS LESS THAN 2, LABS THIS AM. ABLE TO MAKE NEEDS KNOWN, CALL LIGHT IN REACH, BED LOCKED IN LOW POSITION
[2023-08-06 04:54] LABS: BASOPHILS ABSOLUTE AUTO 0.04 K/mm3 (0.00-0.23); BASOPHILS PERCENT AUTO 0 % (0-2); EOSINOPHILS ABSOLUTE AUTO 0.04 K/mm3 (0.00-0.68); EOSINOPHILS PERCENT AUTO 0 % (0-6); Hemoglobin 12.8 g/dL (13.5-17.5); IMMATURE GRAN ABSOLUTE AUTO 0.04 K/mm3 (0.00-0.10); IMMATURE GRAN PERCENT AUTO 0 % (0-1); LYMPHOCYTES ABSOLUTE AUTO 1.64 K/mm3 (0.84-5.20); LYMPHOCYTES PERCENT AUTO 13 % (21-46); MONOCYTES ABSOLUTE AUTO 1.41 K/mm3 (0.16-1.47); MONOCYTES PERCENT AUTO 11 % (4-13); Mean Corpuscular HGB 29.8 pg (26.0-34.0); Mean Corpuscular Volume 93 fL (80-100); Mean Platelet Volume 10.5 fL (9.1-12.4); NEUTROPHILS ABSOLUTE AUTO 9.71 K/mm3 (1.96-9.15); NEUTROPHILS PERCENT AUTO 76 % (41-73); Platelet Count 202 K/mm3 (150-400); RDW Coefficient Variation 14.1 % (11.7-14.2); RDW Standard Deviation 48.6 fL (35.1-46.3); White Blood Cell Count 12.88 K/mm3 (4.00-11.30)
[2023-08-06 05:04] LABS: International Normalized Ratio 2.27; Prothrombin Time Results 22.8 Sec (9.7-11.5)
[2023-08-06 05:10] LABS: Albumin, Blood 3.1 g/dL (3.4-5.0); Anion Gap 5 mmol/L (6-16); Blood Urea Nitrogen 16 mg/dL (8-24); Bun/Creatinine Ratio 20.5 (12.0-20.0); CO2, Blood 29 mmol/L (21-32); Calcium, Blood 8.1 mg/dL (8.5-10.1); Chloride, Blood 105 mmol/L (98-108); Creatinine, Blood 0.78 mg/dL (0.60-1.20); Glomerular Filtration Rate 100 (60-); Glucose, Blood 114 mg/dL (70-99); Magnesium, Blood 2.3 mg/dL (1.6-2.4); Phosphorus, Blood 3.7 mg/dL (2.5-4.9); Sodium, Blood 139 mmol/L (136-145)
[2023-08-06 07:32] VITALS: BP 105/64
[2023-08-06 16:04] VITALS: BP 116/80
[2023-08-06 16:32] LABS: International Normalized Ratio 2.61
--- NOTE | 2023-08-06 17:16 | NUR ---
SHIFT SUMMARY- PT IS A/O, PLESANT AND COOPERATIVE. HE IS INDIPENDENT IN THE ROOM. RECIEVED PAIN MEDICATION NEEDED. HE WILL HAVE SURGERY TOMORRW AND WILL BE NPO AFTERMIDNIGHT. HE IS EATING AND DRINKING WELL THIS SHIFT. HE IS AMBULATING TO THE RESTROOM INDEPENDENTLY. HIS BED IS IN THE LOW POSITION AND CALL LIGHT IS WITHIN REACH.
[2023-08-06 19:25] VITALS: BP 110/58
[2023-08-07 04:36] VITALS: BP 127/84
[2023-08-07 05:35] LABS: BASOPHILS ABSOLUTE AUTO 0.02 K/mm3 (0.00-0.23); BASOPHILS PERCENT AUTO 0 % (0-2); EOSINOPHILS ABSOLUTE AUTO 0.06 K/mm3 (0.00-0.68); EOSINOPHILS PERCENT AUTO 1 % (0-6); Hematocrit 38.9 % (37.0-53.0); Hemoglobin 12.5 g/dL (13.5-17.5); IMMATURE GRAN ABSOLUTE AUTO 0.04 K/mm3 (0.00-0.10); IMMATURE GRAN PERCENT AUTO 0 % (0-1); LYMPHOCYTES PERCENT AUTO 9 % (21-46); MONOCYTES ABSOLUTE AUTO 0.82 K/mm3 (0.16-1.47); MONOCYTES PERCENT AUTO 6 % (4-13); Mean Corpuscular HGB Conc 32.1 g/dL (31.5-36.5); Mean Corpuscular Volume 93 fL (80-100); Mean Platelet Volume 9.9 fL (9.1-12.4); NEUTROPHILS ABSOLUTE AUTO 10.94 K/mm3 (1.96-9.15); NEUTROPHILS PERCENT AUTO 84 % (41-73); Platelet Count 181 K/mm3 (150-400); RDW Coefficient Variation 13.9 % (11.7-14.2); Red Blood Cell Count 4.17 M/mm3 (4.30-5.90); White Blood Cell Count 13.08 K/mm3 (4.00-11.30)
[2023-08-07 05:49] LABS: International Normalized Ratio 1.71; Prothrombin Time Results 17.4 Sec (9.7-11.5)
--- NOTE | 2023-08-07 06:00 | NUR ---
SUMMARY: PT A/OX4, IS INDEPENDENT IN ROOM AND CALLS APPROPRIATELY TO SPECIFY NEEDS. HE'S BEEN NPO SINCE [place] FOR BILAT INGUINAL HERNIA REPAIR. ROXICODONE RECIEVED PRN FOR TOLERABLE RELIEF OF ASSOCIATED PAIN. HE'S DENIED FURTHER COMPLAINTS/CONCERNS. PT TOLERATED CPAP AT HS W/CONT BIOX INTACT. HEPARIN GTT MAY BE COMMENCED IF/WHEN INR<2.0, AM LABS PENDING. VSS/AFEBRILE, NO ACUTE CHANGES. WCTM AND REPORT TO DAY RN.
[2023-08-07 06:37] LABS: Albumin, Blood 3.4 g/dL (3.4-5.0); Anion Gap 3 mmol/L (6-16); Blood Urea Nitrogen 16 mg/dL (8-24); Bun/Creatinine Ratio 21.7 (12.0-20.0); CO2, Blood 36 mmol/L (21-32); Calcium, Blood 8.3 mg/dL (8.5-10.1); Chloride, Blood 100 mmol/L (98-108); Creatinine, Blood 0.74 mg/dL (0.60-1.20); Glomerular Filtration Rate 101 (60-); Glucose, Blood 122 mg/dL (70-99); Magnesium, Blood 2.2 mg/dL (1.6-2.4); Phosphorus, Blood 3.1 mg/dL (2.5-4.9); Potassium, Blood 3.8 mmol/L (3.5-5.5); Sodium, Blood 139 mmol/L (136-145)
[2023-08-07 07:52] VITALS: BP 115/74
[2023-08-07 15:37] VITALS: BP 105/67
--- NOTE | 2023-08-07 18:18 | NUR ---
TRANSFER TO SURGICAL FLOOR PATIENT WAS TRANSFERRED TO ROOM 227 FROM [facility], ORIENTED TO NEW ROOM, MEDS PLACED IN HIS LOCK BOX, PT DENIES ANY PAIN AT TIME OF ARRIVAL. PT DENIES ANY NEEDS AT THIS TIME, DISCUSSED PLAN OF CARE FOR TONIGHT AND PLAN FOR OR SUNDAY.
[2023-08-07 18:19] VITALS: BP 122/76
--- NOTE | 2023-08-07 18:31 | NUR ---
PT TRANSFERED TO 227 AT 1800. NO ACUTE EVENTS. PT BELONGINGS OUT OF ROOM AND WITH PT.
[2023-08-07 20:24] VITALS: BP 105/63
[2023-08-08 04:32] VITALS: BP 112/60
--- NOTE | 2023-08-08 04:42 | NUR ---
SHIFT SUMMARY NOC. PT A/O X4. PT DENIES PAIN AND NAUSEA THIS SHIFT. HEPARIN DRIP RUNNING ORDERED. PT WORE CPAP MACHINE THROUOUT THE NIGHT AND SATS REMAINED ABOVE 90%. PT RESTED WELL WITH CALL LIGHT IN REACH.
[2023-08-08 05:32] LABS: BASOPHILS ABSOLUTE AUTO 0.03 K/mm3 (0.00-0.23); BASOPHILS PERCENT AUTO 0 % (0-2); EOSINOPHILS ABSOLUTE AUTO 0.15 K/mm3 (0.00-0.68); EOSINOPHILS PERCENT AUTO 1 % (0-6); Hemoglobin 11.8 g/dL (13.5-17.5); IMMATURE GRAN ABSOLUTE AUTO 0.04 K/mm3 (0.00-0.10); IMMATURE GRAN PERCENT AUTO 0 % (0-1); LYMPHOCYTES ABSOLUTE AUTO 1.88 K/mm3 (0.84-5.20); LYMPHOCYTES PERCENT AUTO 18 % (21-46); MONOCYTES ABSOLUTE AUTO 0.83 K/mm3 (0.16-1.47); MONOCYTES PERCENT AUTO 8 % (4-13); Mean Corpuscular HGB 29.6 pg (26.0-34.0); Mean Corpuscular HGB Conc 31.9 g/dL (31.5-36.5); Mean Corpuscular Volume 93 fL (80-100); Mean Platelet Volume 9.9 fL (9.1-12.4); NEUTROPHILS ABSOLUTE AUTO 7.78 K/mm3 (1.96-9.15); NEUTROPHILS PERCENT AUTO 73 % (41-73); Platelet Count 164 K/mm3 (150-400); RDW Coefficient Variation 13.5 % (11.7-14.2); Red Blood Cell Count 3.98 M/mm3 (4.30-5.90); White Blood Cell Count 10.71 K/mm3 (4.00-11.30)
[2023-08-08 06:04] LABS: Albumin, Blood 3.2 g/dL (3.4-5.0); Anion Gap 5 mmol/L (6-16); Blood Urea Nitrogen 19 mg/dL (8-24); Bun/Creatinine Ratio 25.1 (12.0-20.0); CO2, Blood 34 mmol/L (21-32); Calcium, Blood 8.2 mg/dL (8.5-10.1); Chloride, Blood 102 mmol/L (98-108); Creatinine, Blood 0.76 mg/dL (0.60-1.20); Glomerular Filtration Rate 100 (60-); Glucose, Blood 121 mg/dL (70-99); Phosphorus, Blood 2.5 mg/dL (2.5-4.9); Potassium, Blood 3.4 mmol/L (3.5-5.5); Sodium, Blood 141 mmol/L (136-145)
[2023-08-08 07:36] LABS: International Normalized Ratio 1.32; Prothrombin Time Results 13.6 Sec (9.7-11.5)
[2023-08-08 08:09] VITALS: BP 138/64
[2023-08-08 15:05] VITALS: BP 109/71
--- NOTE | 2023-08-08 16:00 | NUR ---
Upon receiving a referral for spiritual care, I visited the patient. I learn of his desire to have a prayer said for him by Father Jair. I arrange for Father Jair to see the patient and pray for him which he does. I then check on the patient and he voices his appreciation for the prayer and his appreciation for his overall experince with the hospital staff. I will continue to remain available to patient and family.
--- NOTE | 2023-08-08 18:01 | NUR ---
SHIFT SUMMARY PT HAS BEEN INDEPENDENT IN THE ROOM T/O THE DAY. PT IS AWAITING SURGERY TOMORROW. TOLERATING PO. PT DENIES PAIN.
[2023-08-08 18:26] VITALS: BP 110/68
[2023-08-08 19:35] VITALS: BP 106/78
[2023-08-09] VITALS (13 sets, daily range): BP systolic 118–145; BP diastolic 76–93
--- NOTE | 2023-08-09 04:02 | NUR ---
HEPARIN HEPARIN STOPPED PER DR. BRUNER FOR SURGERY TODAY.
--- NOTE | 2023-08-09 04:55 | NUR ---
SHIFT SUMMARY PT ABLE TO REST T/O NIGHT. CPAP WAS WORN ALL NIGHT. PT HAS BEEN NPO SINCE MIDNIGHT AND HEPARIN STOPPED AT 0400 FOR SURGERY TODAY. PT UP TO THE BATHROOM INDEPENDENTLY. VOIDING. PT AWAITING SURGERY. NO OTHER CONCERNS AT THIS TIME, CALL LIGHT GAIL REACH
[2023-08-09 08:04] LABS: International Normalized Ratio 1.12; Prothrombin Time Results 11.7 Sec (9.7-11.5)
--- NOTE | 2023-08-09 19:58 | NUR ---
SHIFT SUMMARY PT IS POD#0 FROM BILAT INGUINAL HERNIA REPAIR. PAIN MANAGED WITH PO PAIN MEDICATION. PT TOLERATING PO. PT HAS AMBULATED, VOIDED, PASSED FLATUS AND HAD A SMALL BM POST-OP. HEP GTT HELD AT THIS TIME PER DR. BRUNER. REPORT GIVEN TO LALIT RUGGIERO.
--- NOTE | 2023-08-09 20:04 | NUR ---
PT ARRIVED BACK TO THE ROOM AT APPROXIMATELY 1515. PT ALERT AND ORIENTED UPON ARRIVAL. PAIN MANAGED. SWELLING TO SCROTUM/GROIN PRESENT, UNCHAGED FROM PRE-OP. SOME REDNESS NOTED TO GROIN SKIN FOLDS.
[2023-08-10 04:24] VITALS: BP 136/78
[2023-08-10 04:50] LABS: BASOPHILS ABSOLUTE AUTO 0.01 K/mm3 (0.00-0.23); BASOPHILS PERCENT AUTO 0 % (0-2); EOSINOPHILS PERCENT AUTO 0 % (0-6); Hematocrit 36.6 % (37.0-53.0); Hemoglobin 11.6 g/dL (13.5-17.5); IMMATURE GRAN ABSOLUTE AUTO 0.07 K/mm3 (0.00-0.10); IMMATURE GRAN PERCENT AUTO 1 % (0-1); LYMPHOCYTES ABSOLUTE AUTO 0.79 K/mm3 (0.84-5.20); LYMPHOCYTES PERCENT AUTO 5 % (21-46); MONOCYTES PERCENT AUTO 7 % (4-13); Mean Corpuscular HGB 29.9 pg (26.0-34.0); Mean Corpuscular HGB Conc 31.7 g/dL (31.5-36.5); Mean Corpuscular Volume 94 fL (80-100); Mean Platelet Volume 10.2 fL (9.1-12.4); NEUTROPHILS ABSOLUTE AUTO 13.06 K/mm3 (1.96-9.15); NEUTROPHILS PERCENT AUTO 87 % (41-73); Platelet Count 182 K/mm3 (150-400); RDW Coefficient Variation 13.5 % (11.7-14.2); RDW Standard Deviation 46.2 fL (35.1-46.3); Red Blood Cell Count 3.88 M/mm3 (4.30-5.90); White Blood Cell Count 14.93 K/mm3 (4.00-11.30)
--- NOTE | 2023-08-10 05:04 | NUR ---
SHIFT SUMMARY POD 1 INGUINAL HERNIA REPAIR PT SLEPT T/O NIGHT. PT DENIES ANY PAIN. PT UP TO THE BATHROOM IND, VOIDING, PASSING GAS, NO BOWEL MOVEMENT. DENIES AND N/V. DRESSING TO RIGHT INGUINAL AREA C/D/I. PT WORE CPAP ALL NIGHT. NO OTHER CONCERNS AT THIS TIME. CALL LIGHT WITHIN REACH.
[2023-08-10 07:05] VITALS: BP 122/74
[2023-08-10] MEDS ORDERED: Carvedilol12.5 MG PO (09:22)
[2023-08-10] MEDS ORDERED: MASOPHEN500 M2 PO (09:23)
[2023-08-10] MEDS ORDERED: ONDA4 PO (09:24)
--- NOTE | 2023-08-10 09:37 | NUR ---
DISCHARGE NOTE: PATIENT AND FAMILY WERE EDUCATED ON DISCHARGE INSTRUCTIONS. BOTH VERBALIZED UNDERSTANDING OF INSTRUCTIONS AND HAD NO FURTHER QUESTIONS AT THIS TIME. IV WAS TAKEN OUT AND WNL. PAIN IS MANAGED WITH ORAL PAIN MEDS. PERSCRIPTIONS WERE FAXED TO [facility]. HIS GROIN INCISION HAS A MEDIPORE DRESSING THAT IS C/D/I. HE IS TOLERATING PO INTAKE AND IS VOIDING. PATIENT IS GETTING DRESSED AND HAS PERSONAL ITEMS IN THE ROOM GATHERED.
== END 2023-08-10 09:50 | disposition home or self-care (01) | DRG 351 ==
LOC: ER 08:41 → MEDS 15:07 → SURS 15:07 → MEDS 16:20 → SURS 08-07 17:59
PROVIDERS: Emergency Medicine; Surgery; ADMIT Family Medicine
PROC: 5A09357 Assistance with Respiratory Ventilation, Less than 24 Consecutive Hours, Continuous Positive Airway Pressure (ICD-10-PCS; 2023-08-08)
PROC: 0YU50JZ Supplement Right Inguinal Region with Synthetic Substitute, Open Approach (ICD-10-PCS; principal; 2023-08-09 10:30)
DX: K40.30 Unilateral inguinal hernia, with obstruction, without gangrene, not specified as recurrent (principal); E87.20 Acidosis, unspecified; I42.0 Dilated cardiomyopathy; I50.22 Chronic systolic (congestive) heart failure; I48.91 Unspecified atrial fibrillation; E78.5 Hyperlipidemia, unspecified; E11.65 Type 2 diabetes mellitus with hyperglycemia; I11.0 Hypertensive heart disease with heart failure; G47.33 Obstructive sleep apnea (adult) (pediatric); Z88.0 Allergy status to penicillin; Z79.01 Long term (current) use of anticoagulants; Z79.899 Other long term (current) drug therapy; Z98.890 Other specified postprocedural states; Z86.73 Personal history of transient ischemic attack (TIA), and cerebral infarction without residual deficits; Z95.0 Presence of cardiac pacemaker
CPT/HCPCS: 36415; 74177; 80053; 80069; 81001; 82947; 83605; 83690; 83735; 85025; 85520; 85610; 85730; 93005; 93010; 94660; 94760; 94762; 96374-59; 96375; 99284-25; A9270; C1781; C9113; J0690; J1100; J1644; J2270; J2371; J2405; J2704; J3010; J7050; J7060; J7120; Q9967

== ENCOUNTER → 2023-11-28 | Outpatient (CLI) | payer MEDICARE, OTHER ==
[~2023-11-28] MED LIST changes: +Carvedilol12.5 MG PO; +Coumadin2.5 MG PO; +LISINOPRIL2.5 MG PO; +MASOPHEN500 M2 PO; +ONDA4 PO
[2023-11-28 11:33] LABS: BASOPHILS ABSOLUTE AUTO 0.03 K/mm3 (0.00-0.23); BASOPHILS PERCENT AUTO 0 % (0-2); EOSINOPHILS ABSOLUTE AUTO 0.16 K/mm3 (0.00-0.68); EOSINOPHILS PERCENT AUTO 2 % (0-6); Hematocrit 41.3 % (37.0-53.0); Hemoglobin 13.2 g/dL (13.5-17.5); IMMATURE GRAN ABSOLUTE AUTO 0.02 K/mm3 (0.00-0.10); IMMATURE GRAN PERCENT AUTO 0 % (0-1); LYMPHOCYTES ABSOLUTE AUTO 1.61 K/mm3 (0.84-5.20); LYMPHOCYTES PERCENT AUTO 21 % (21-46); MONOCYTES ABSOLUTE AUTO 0.53 K/mm3 (0.16-1.47); MONOCYTES PERCENT AUTO 7 % (4-13); Mean Corpuscular HGB 29.5 pg (26.0-34.0); Mean Corpuscular Volume 92 fL (80-100); Mean Platelet Volume 10.3 fL (9.1-12.4); NEUTROPHILS ABSOLUTE AUTO 5.33 K/mm3 (1.96-9.15); NEUTROPHILS PERCENT AUTO 69 % (41-73); Platelet Count 195 K/mm3 (150-400); RDW Coefficient Variation 13.8 % (11.7-14.2); RDW Standard Deviation 47.2 fL (35.1-46.3); Red Blood Cell Count 4.47 M/mm3 (4.30-5.90); White Blood Cell Count 7.68 K/mm3 (4.00-11.30)
[2023-11-28 11:35] LABS: International Normalized Ratio 1.98
[2023-11-28 13:44] LABS: Alanine Aminotransfer (ALT/SGP 19 U/L (12-78); Albumin, Blood 3.9 g/dL (3.4-5.0); Albumin/Globulin Ratio 0.9 (0.8-1.8); Alk Phos 84 U/L (50-136); Anion Gap 3 mmol/L (6-16); Aspartate Aminotrans (AST/SGOT 21 U/L (12-37); Bilirubin, Total 0.4 mg/dL (0.1-1.0); Blood Urea Nitrogen 17 mg/dL (8-24); CHOL/HDL RATIO 2.2; CO2, Blood 30 mmol/L (21-32); Calcium, Blood 8.9 mg/dL (8.5-10.1); Chloride, Blood 100 mmol/L (98-108); Cholesterol 90 mg/dL (50-200); Globulin, Blood 4.2 g/dL (2.2-4.0); Glucose, Blood 101 mg/dL (70-99); HDL Cholesterol 41 mg/dL (>39); LDL/HDL RATIO 0.8; Low Density Lipoprotein Chol 35 mg/dL (0-110); Potassium, Blood 3.9 mmol/L (3.5-5.5); Sodium, Blood 133 mmol/L (136-145); Total Protein, Blood 8.1 g/dL (6.4-8.2); Triglycerides 71 mg/dL (30-160); Very Low Density Lipoprot Chol 14 mg/dL (6-32)
[2023-11-28 13:45] LABS: Bun/Creatinine Ratio 28.5 (12.0-20.0); Glomerular Filtration Rate 108 (60-); PSA, %Free 23.9 %; PSA, Free 0.058 ng/mL; Prostate Specific Antigen 0.243 ng/mL (0.000-4.000)
== END | disposition home or self-care (01) ==
LOC: LAB SHORT 10:43
PROVIDERS: Family Medicine
DX: E78.49 Other hyperlipidemia (principal); E11.9 Type 2 diabetes mellitus without complications; N40.0 Benign prostatic hyperplasia without lower urinary tract symptoms; I48.91 Unspecified atrial fibrillation
CPT/HCPCS: 80053; 80061; 83036; 84153; 84154; 85025; 85610

== ENCOUNTER 2024-07-15 08:11 | Day surgery (SDC) | payer MEDICARE, OTHER ==
[~2024-07-15] VITALS: Ht 182.9 cm; Wt 111.6 kg
[~2024-07-15 08:11] MED LIST changes: +Lactated Ringer's 1,000 ML IV SCH
[2024-07-15 09:25] VITALS: BP 125/82
[2024-07-15] MEDS ORDERED: ALLEGRA ALLERG180 MG PO (09:28)
--- NOTE | 2024-07-15 10:22 | NUR ---
History, Chart, Medications and Allergies reviewed before start of procedure. Patient up to Ambulate independently. Gait steady. Pre-Op teaching done. Pt verbalizes understanding. Patient confirms NPO status and agrees with scheduled surgery. Patient States Post-Procedure ride home has been arranged.
[2024-07-15 10:48] LABS: Bun/Creatinine Ratio 23.5 (12.0-20.0); Calcium, Blood 9.1 mg/dL (8.5-10.1); Creatinine, Blood 0.72 mg/dL (0.60-1.20); Potassium, Blood 4.1 mmol/L (3.5-5.5)
[2024-07-15] MEDS ORDERED: Etomidate 2MG / ML 10ML Vial ONE (11:20)
[2024-07-15] MEDS ORDERED: Midazolam HCL 1 MG/ML 5MLVIAL ONE (11:25)
[2024-07-15] MEDS ORDERED: FentaNYL Citrate 50 MCG/ML 2 ML Injection ONE (11:25)
--- NOTE | 2024-07-15 11:39 | NUR ---
07/15/24 1139 Jennifer Romero MONITOR INTACT WITH CONTINUOUS PULSE OXIMETRY, CONTINUOUS END TITAL CO2, AND INTERMITTENT BLOOD PRESSURE AND EKG. ANESTHESIA PER DR. JARAMILLO.
[2024-07-15 11:55] VITALS: BP 131/74
[2024-07-15 12:00] VITALS: BP 135/77
--- NOTE | 2024-07-15 12:14 | NUR ---
Discharge instructions reviewed with patient. Patient verbalizes understanding. Copy given to patient to take home.
[2024-07-15 12:15] VITALS: BP 117/75
--- NOTE | 2024-07-15 12:20 | NUR ---
Discharged via wheelchair to private car for ride home.
== END 2024-07-15 12:21 | disposition home or self-care (01) ==
LOC: ORSCMMR 08:11 → ORD 09:30 → ORSCMMR 09:30
PROVIDERS: Internal Medicine Gastroenterology; Specialist
PROC: 0DBN8ZX Excision of Sigmoid Colon, Via Natural or Artificial Opening Endoscopic, Diagnostic (ICD-10-PCS; principal; 2024-07-15 09:30)
PROC: 0DBH8ZX Excision of Cecum, Via Natural or Artificial Opening Endoscopic, Diagnostic (ICD-10-PCS; principal; 2024-07-15 09:30)
DX: Z12.11 Encounter for screening for malignant neoplasm of colon (principal); Z80.0 Family history of malignant neoplasm of digestive organs; K63.5 Polyp of colon; D12.0 Benign neoplasm of cecum; K57.30 Diverticulosis of large intestine without perforation or abscess without bleeding; Z86.73 Personal history of transient ischemic attack (TIA), and cerebral infarction without residual deficits; Z95.810 Presence of automatic (implantable) cardiac defibrillator; Z99.81 Dependence on supplemental oxygen; I25.5 Ischemic cardiomyopathy; G47.33 Obstructive sleep apnea (adult) (pediatric); I48.91 Unspecified atrial fibrillation; F32.A Depression, unspecified; Z79.01 Long term (current) use of anticoagulants; Z79.899 Other long term (current) drug therapy
CPT/HCPCS: 80048; 82947; 88305; J2250; J3010; J7120

== ENCOUNTER 2025-04-14 13:06 | Inpatient (IN) | payer MEDICARE, OTHER ==
[~2025-04-14] VITALS: Ht 185.4 cm; Wt 108.5 kg
[~2025-04-14 13:06] MED LIST changes: +ALLEGRA ALLERG180 MG PO; +Etomidate 2MG / ML 10ML Vial IV ONE; -Lactated Ringer's 1,000 ML IV SCH; +Lidocaine HCl 2% 20 MG/ML 5ML SYR IV ONE; +Propofol 10mg/ml 20 ml Vial (Procedural) IV ONE
[2025-04-14] MEDS ORDERED: Diltiazem HCl 5 MG / ML 5ML Vial IV ONE (13:20)
[2025-04-14 13:38] LABS: BASOPHILS ABSOLUTE AUTO 0.02 K/mm3 (0.00-0.23); BASOPHILS PERCENT AUTO 0 % (0-2); EOSINOPHILS ABSOLUTE AUTO 0.00 K/mm3 (0.00-0.68); EOSINOPHILS PERCENT AUTO 0 % (0-6); Hematocrit 48.5 % (37.0-53.0); Hemoglobin 15.0 g/dL (13.5-17.5); IMMATURE GRAN ABSOLUTE AUTO 0.04 K/mm3 (0.00-0.10); IMMATURE GRAN PERCENT AUTO 0 % (0-1); LYMPHOCYTES ABSOLUTE AUTO 0.65 K/mm3 (0.84-5.20); LYMPHOCYTES PERCENT AUTO 7 % (21-46); MONOCYTES ABSOLUTE AUTO 1.11 K/mm3 (0.16-1.47); MONOCYTES PERCENT AUTO 11 % (4-13); Mean Corpuscular HGB Conc 30.9 g/dL (31.5-36.5); Mean Corpuscular Volume 99 fL (80-100); NEUTROPHILS ABSOLUTE AUTO 7.93 K/mm3 (1.96-9.15); NEUTROPHILS PERCENT AUTO 81 % (41-73); NRBC ABSOLUTE 0.04 K/mm3 (0.00-0.02); NRBC Auto 0.4 /100 WBC (0.0-0.2); Platelet Count 188 K/mm3 (150-400); RDW Coefficient Variation 16.8 % (11.7-14.2); RDW Standard Deviation 60.7 fL (35.1-46.3)
[2025-04-14 14:22] LABS: Alanine Aminotransfer (ALT/SGP 183.0 U/L (12-78); Albumin, Blood 3.6 g/dL (3.4-5.0); Albumin/Globulin Ratio 0.8 (0.8-1.8); Anion Gap 20.0 mmol/L (3-11); Aspartate Aminotrans (AST/SGOT 382.0 U/L (12-37); Bilirubin, Total 4.9 mg/dL (0.1-1.0); Blood Urea Nitrogen 22.0 mg/dL (8-24); CO2, Blood 22.0 mmol/L (21-32); Calcium, Blood 9.2 mg/dL (8.5-10.1); Chloride, Blood 97.0 mmol/L (98-108); Creatinine, Blood 1.17 mg/dL (0.60-1.20); Globulin, Blood 4.4 g/dL (2.2-4.0); Glucose, Blood 159.0 mg/dL (70-99); Potassium, Blood 3.9 mmol/L (3.5-5.5); Sodium, Blood 135.0 mmol/L (136-145); Total Protein, Blood 8.0 g/dL (6.4-8.2)
[2025-04-14 14:33] LABS: Prothrombin Time Results >90.0 Sec (9.7-11.5)
[2025-04-14] MEDS ORDERED: Insulin Regular 100 UNIT/ML 10ML Vial SC SCH (16:30)
[2025-04-14 20:48] VITALS: BP 112/72
[2025-04-14 21:57] VITALS: BP 109/87
[2025-04-14 22:00] VITALS: BP 112/87
[2025-04-14 22:30] VITALS: BP 110/77
[2025-04-14 23:00] VITALS: BP 104/83
[2025-04-14 23:30] VITALS: BP 110/85
[2025-04-15] VITALS (37 sets, daily range): BP systolic 80–133; BP diastolic 55–114
[2025-04-15 05:12] LABS: BASOPHILS ABSOLUTE AUTO 0.02 K/mm3 (0.00-0.23); BASOPHILS PERCENT AUTO 0 % (0-2); EOSINOPHILS ABSOLUTE AUTO 0.00 K/mm3 (0.00-0.68); EOSINOPHILS PERCENT AUTO 0 % (0-6); Hematocrit 45.5 % (37.0-53.0); Hemoglobin 14.3 g/dL (13.5-17.5); IMMATURE GRAN ABSOLUTE AUTO 0.08 K/mm3 (0.00-0.10); IMMATURE GRAN PERCENT AUTO 1 % (0-1); LYMPHOCYTES ABSOLUTE AUTO 0.98 K/mm3 (0.84-5.20); LYMPHOCYTES PERCENT AUTO 8 % (21-46); MONOCYTES ABSOLUTE AUTO 1.31 K/mm3 (0.16-1.47); MONOCYTES PERCENT AUTO 10 % (4-13); Mean Corpuscular HGB Conc 31.4 g/dL (31.5-36.5); Mean Corpuscular Volume 98 fL (80-100); NEUTROPHILS ABSOLUTE AUTO 10.67 K/mm3 (1.96-9.15); NEUTROPHILS PERCENT AUTO 82 % (41-73); NRBC ABSOLUTE 0.02 K/mm3 (0.00-0.02); NRBC Auto 0.2 /100 WBC (0.0-0.2); Platelet Count 155 K/mm3 (150-400); RDW Coefficient Variation 16.7 % (11.7-14.2); RDW Standard Deviation 58.4 fL (35.1-46.3)
[2025-04-15 05:42] LABS: Prothrombin Time Results >90.0 Sec (9.7-11.5)
--- NOTE | 2025-04-15 06:31 | NUR ---
PT MONITORED THROUGH THE SHIFT.PT HAS BEEN SLEEPING MOST OF THE NIGHT.PT TOLERATED THE BIPAP THROUGH THE NIGHT.BP REMAIN SOFT BUT MAP WNL.IN AFIB WITH IRREGULAR RATE 90'S-140'S. AMIODARONE INFUSING AT 16.7ML/HR.PT HAD FREQUENT VTACH RANGING FROM 6-[address] REED NOTIFIED OF THE FREQUENT VTACHS.NO NEW ORDER GIVEN.PT SLEEPING AT THIS TIME,EASILY AROUSABLE.PT DENIES PAIN,DENIES NEEDS.CALL LIGHT AND PT'S ITEMS WITHIN REACH.MONITORING ONGOING PER CAREPLAN.
[2025-04-15 06:54] LABS: Alanine Aminotransfer (ALT/SGP 938.0 U/L (12-78); Albumin, Blood 2.9 g/dL (3.4-5.0); Albumin/Globulin Ratio 0.8 (0.8-1.8); Anion Gap 12.0 mmol/L (3-11); Aspartate Aminotrans (AST/SGOT 2290.0 U/L (12-37); Bilirubin, Total 4.7 mg/dL (0.1-1.0); Blood Urea Nitrogen 28.0 mg/dL (8-24); CO2, Blood 32.0 mmol/L (21-32); Calcium, Blood 8.5 mg/dL (8.5-10.1); Chloride, Blood 97.0 mmol/L (98-108); Creatinine, Blood 1.26 mg/dL (0.60-1.20); Globulin, Blood 3.6 g/dL (2.2-4.0); Glucose, Blood 145.0 mg/dL (70-99); Potassium, Blood 3.5 mmol/L (3.5-5.5); Sodium, Blood 137.0 mmol/L (136-145); Total Protein, Blood 6.5 g/dL (6.4-8.2)
[2025-04-15] MEDS ORDERED: Miconazole Nitrate 2% 85 GM PWD TOP SCH (09:00)
[2025-04-15 13:39] LABS: Anion Gap 5.0 mmol/L (3-11); Blood Urea Nitrogen 30.0 mg/dL (8-24); CO2, Blood 40.0 mmol/L (21-32); Calcium, Blood 8.4 mg/dL (8.5-10.1); Chloride, Blood 97.0 mmol/L (98-108); Creatinine, Blood 1.2 mg/dL (0.60-1.20); Glucose, Blood 125.0 mg/dL (70-99); Potassium, Blood 3.5 mmol/L (3.5-5.5); Sodium, Blood 138.0 mmol/L (136-145)
[2025-04-15 13:50] LABS: Prothrombin Time Results >90.0 Sec (9.7-11.5)
--- NOTE | 2025-04-15 18:57 | NUR ---
EOS: PATIENT IS A/O X 4 ABLE TO MAKE NEEDS KNOWN, DENIES CHEST PAIN PRESSURE, HOWERVER, WHEN HE HAD EXERTIONALLY HIGH HR UP TO THE 150'S AFTER A RUN OF 17 BEATS OF VTACH FELT A MINIMAL AMOUNT/ TWINGE OF CHEST PRESSURE, IMMEDIATELY SUBSIDED. BLOOD PRESSURE UPPER 90-LOW 100'S SYSTOICALLY. MAPS ALL GREATHER THAN 65. DENIES ANY FURTHER TWINGES, TOLERATING TEHE BIPAP WELL AT 14/7 25% OR 1L VIA NC FOR BREAKS. GREAT APPETITE COOPERATIVE AND VERY CLOSELY MONITORED I/O. CALDWELL STILL IN PLACE CATHETER CARE PROVIDEED AT 1400 WITH STANDING WEIGHT. PATIENT DIURETICS AND DIGOXIN CHANGES FROM OFFICE SYSTEM ANALYST. DR. FOFANA. PATIENT OVERALL IMPROVED THROUGH THE DAY HR RANGING FROM 90 -150 WITH EXERTION. PLAN OF CARE CONTINUES. NO ACUTE CONCERN NOT ADDRESSED.
[2025-04-15 20:15] LABS: Anion Gap 6.0 mmol/L (3-11); Blood Urea Nitrogen 32.0 mg/dL (8-24); CO2, Blood 37.0 mmol/L (21-32); Calcium, Blood 9.0 mg/dL (8.5-10.1); Chloride, Blood 97.0 mmol/L (98-108); Creatinine, Blood 1.14 mg/dL (0.60-1.20); Glucose, Blood 98.0 mg/dL (70-99); Potassium, Blood 4.2 mmol/L (3.5-5.5); Sodium, Blood 136.0 mmol/L (136-145)
[2025-04-15 20:54] LABS: Prothrombin Time Results >90.0 Sec (9.7-11.5)
[2025-04-16] VITALS (21 sets, daily range): BP systolic 97–139; BP diastolic 61–122
[2025-04-16 04:41] LABS: BASOPHILS ABSOLUTE AUTO 0.04 K/mm3 (0.00-0.23); BASOPHILS PERCENT AUTO 0 % (0-2); EOSINOPHILS ABSOLUTE AUTO 0.02 K/mm3 (0.00-0.68); EOSINOPHILS PERCENT AUTO 0 % (0-6); Hematocrit 43.8 % (37.0-53.0); Hemoglobin 13.7 g/dL (13.5-17.5); IMMATURE GRAN ABSOLUTE AUTO 0.03 K/mm3 (0.00-0.10); IMMATURE GRAN PERCENT AUTO 0 % (0-1); LYMPHOCYTES ABSOLUTE AUTO 1.06 K/mm3 (0.84-5.20); LYMPHOCYTES PERCENT AUTO 11 % (21-46); MONOCYTES ABSOLUTE AUTO 0.83 K/mm3 (0.16-1.47); MONOCYTES PERCENT AUTO 8 % (4-13); Mean Corpuscular HGB Conc 31.3 g/dL (31.5-36.5); Mean Corpuscular Volume 96 fL (80-100); NEUTROPHILS ABSOLUTE AUTO 8.16 K/mm3 (1.96-9.15); NEUTROPHILS PERCENT AUTO 80 % (41-73); NRBC ABSOLUTE 0.00 K/mm3 (0.00-0.02); NRBC Auto 0.0 /100 WBC (0.0-0.2); Platelet Count 149 K/mm3 (150-400); RDW Coefficient Variation 16.3 % (11.7-14.2); RDW Standard Deviation 57.3 fL (35.1-46.3)
[2025-04-16 05:06] LABS: Prothrombin Time Results 53.7 Sec (9.7-11.5)
--- NOTE | 2025-04-16 06:02 | NUR ---
SHIFT SUMMARY PT A&O X4, ABLE TO MAKE NEEDS KNOWN. VSS, AFEBRILE, SPO2 >95% ON BIPAP. PT TOLERATES BREAK FROM BIPAP WELL WITH 1L O2 NC. PT DENIES SOB OR CP. CALDWELL IN PLACE DRAINING YELLOW URINE TO GRAVITY WITH GOOD OUTPUT. TELE SHOWS AFIB WITH HR 90'S-120'S. PT DID HAVE RUN OF Mediasmart, HE REMAINED ASYMPTOMATIC. BED IN LOWEST POSITION, CALL LIGHT IN REACH.
[2025-04-16 07:06] LABS: Alanine Aminotransfer (ALT/SGP 899.0 U/L (12-78); Albumin, Blood 2.9 g/dL (3.4-5.0); Albumin/Globulin Ratio 0.8 (0.8-1.8); Anion Gap 8.0 mmol/L (3-11); Aspartate Aminotrans (AST/SGOT 1216.0 U/L (12-37); Bilirubin, Total 3.5 mg/dL (0.1-1.0); Blood Urea Nitrogen 31.0 mg/dL (8-24); CO2, Blood 35.0 mmol/L (21-32); Calcium, Blood 8.2 mg/dL (8.5-10.1); Chloride, Blood 98.0 mmol/L (98-108); Creatinine, Blood 1.17 mg/dL (0.60-1.20); Globulin, Blood 3.5 g/dL (2.2-4.0); Glucose, Blood 92.0 mg/dL (70-99); Potassium, Blood 4.0 mmol/L (3.5-5.5); Sodium, Blood 137.0 mmol/L (136-145); Total Protein, Blood 6.4 g/dL (6.4-8.2)
--- NOTE | 2025-04-16 09:54 | NUR ---
ASSUMPTINO OF CARE: CHANGES FROM PREVIOUS SHIFT, IS NO LONGER NPO FOR BREAKFAST, DUE TO INR NO HEART CATH, BUT NPO AFTER FOR POTENTIAL CARDIOVERSION WHEN I SPOKE WITH SANITATION WORKER, UNCONFIRMED, HEART CENTER WITH MANY CASES. PATIENT DENIES CHEST PAIN/PRESSURE, NO ACUTE CONCERNS FROM THIS RN HR MINIMALLY IMPROVING NEW MEDS TO START THIS AM. DIURESING IMPROVING WITH INCREASED DOSE. PATIENT TO RECIEVED 1800 DOSE AT 1600. PLAN OF CARE CONTINUES.
[2025-04-16 19:35] LABS: Prothrombin Time Results 34.0 Sec (9.7-11.5)
[2025-04-16 19:44] LABS: Anion Gap 7.0 mmol/L (3-11); Blood Urea Nitrogen 34.0 mg/dL (8-24); CO2, Blood 36.0 mmol/L (21-32); Calcium, Blood 8.3 mg/dL (8.5-10.1); Chloride, Blood 96.0 mmol/L (98-108); Creatinine, Blood 1.05 mg/dL (0.60-1.20); Glucose, Blood 157.0 mg/dL (70-99); Potassium, Blood 4.2 mmol/L (3.5-5.5); Sodium, Blood 135.0 mmol/L (136-145)
--- NOTE | 2025-04-16 19:57 | NUR ---
EOS: PATIENT REMAINS FAIRLY UNCHANGED FROM ASSUMPTION OF CARE, HOWEVER, PLAN IS FOR RHC, ANGIO AND CARDIOVERSION ALL TOMMOROW, HEPARIN GTT IF NINR LESS THAN 2.0 PHARMACY AWARE ORDER ALREADY PLACED. PATIENT RECIEVED A 1 X OF METOLAZONE PRIOR TO BUMEX ADMINISTRATION ~30 MINUTES PRIOR PER CYLINDER BATCHER. CONSENTS SIGNED, PATIENT HAS OVERALL HAD AN DECREASED FATIGUE. OF NOTE HE DID START COUGHING AFTER BREAKFAST THAT LASTED ABOUT AN HOUR, SPOKE WITH HOSPITALIST AND ST SEEN SEE ORDERS. ECHO PERFORMED AND IN SEE RESULTS. SCD'S IN THE ROOM INR IS TRENDING DOWN. NO ACUTE CONCERNS FROM THIS RN AT THIS TIME. VSS, AFEBRILE.
--- NOTE | 2025-04-16 21:22 | NUR ---
PT PLACED ON BIPAP AT 2120 O2 SAT 95%
[2025-04-17] VITALS (13 sets, daily range): BP systolic 92–115; BP diastolic 64–93
[2025-04-17 06:18] LABS: BASOPHILS ABSOLUTE AUTO 0.03 K/mm3 (0.00-0.23); BASOPHILS PERCENT AUTO 0 % (0-2); EOSINOPHILS ABSOLUTE AUTO 0.04 K/mm3 (0.00-0.68); EOSINOPHILS PERCENT AUTO 1 % (0-6); Hematocrit 48.9 % (37.0-53.0); Hemoglobin 15.4 g/dL (13.5-17.5); IMMATURE GRAN ABSOLUTE AUTO 0.04 K/mm3 (0.00-0.10); IMMATURE GRAN PERCENT AUTO 1 % (0-1); LYMPHOCYTES ABSOLUTE AUTO 1.24 K/mm3 (0.84-5.20); LYMPHOCYTES PERCENT AUTO 15 % (21-46); MONOCYTES ABSOLUTE AUTO 0.86 K/mm3 (0.16-1.47); MONOCYTES PERCENT AUTO 10 % (4-13); Mean Corpuscular HGB Conc 31.5 g/dL (31.5-36.5); Mean Corpuscular Volume 97 fL (80-100); NEUTROPHILS ABSOLUTE AUTO 6.32 K/mm3 (1.96-9.15); NEUTROPHILS PERCENT AUTO 74 % (41-73); NRBC ABSOLUTE 0.00 K/mm3 (0.00-0.02); NRBC Auto 0.0 /100 WBC (0.0-0.2); Platelet Count 160 K/mm3 (150-400); RDW Coefficient Variation 16.3 % (11.7-14.2); RDW Standard Deviation 58.3 fL (35.1-46.3)
[2025-04-17 06:37] LABS: Alanine Aminotransfer (ALT/SGP 712.0 U/L (12-78); Albumin, Blood 2.9 g/dL (3.4-5.0); Albumin/Globulin Ratio 0.7 (0.8-1.8); Anion Gap 7.0 mmol/L (3-11); Aspartate Aminotrans (AST/SGOT 517.0 U/L (12-37); Bilirubin, Total 3.4 mg/dL (0.1-1.0); Blood Urea Nitrogen 33.0 mg/dL (8-24); CO2, Blood 39.0 mmol/L (21-32); Calcium, Blood 8.7 mg/dL (8.5-10.1); Chloride, Blood 93.0 mmol/L (98-108); Creatinine, Blood 1.08 mg/dL (0.60-1.20); Globulin, Blood 4.0 g/dL (2.2-4.0); Glucose, Blood 105.0 mg/dL (70-99); Potassium, Blood 3.8 mmol/L (3.5-5.5); Sodium, Blood 135.0 mmol/L (136-145); Total Protein, Blood 6.9 g/dL (6.4-8.2)
[2025-04-17 06:52] LABS: Prothrombin Time Results 22.4 Sec (9.7-11.5)
[2025-04-17] MEDS ORDERED: NS 1,000 ML IV ONE ×2 (06:55→07:53)
[2025-04-17] MEDS ORDERED: Verapamil HCL 2.5 MG/ML 2ML Injection ONE (07:53)
[2025-04-17] MEDS ORDERED: Heparin Sodium 1000 Units/ML 10ML MDV ONE (07:53)
[2025-04-17] MEDS ORDERED: Nitroglycerin 2 MG/20 ML BTL ONE (07:53)
[2025-04-17] MEDS ORDERED: NS 250 ML IV ONE (07:54)
[2025-04-17 15:39] LABS: Prothrombin Time Results 20.5 Sec (9.7-11.5)
--- NOTE | 2025-04-17 16:22 | NUR ---
SHIFT NOTE: PT A/OX4 ABLE TO MAKE HIS NEEDS KNOWN. HE WENT WENT FOR AN ANGIOGRAM THIS AM RETURNING TO UNIT APPROX 0930. R RADIAL SITE FULLY RECOVERED WITH TEGADERM COVERING ON PLACE. PULSES STRONG, NO SWELLING, BRUISING, OR REDNESS. IJ SITE C/D/I. HE HAS HAD A 9BEAT RUN OF VTACH, UNSYMPTOMATIC. CALDWELL DRAINING TO GRAVITY YELLOW URINE. FAMILY UPDATED ON PLAN OF CARE. CALL LIGHT IN REACH
[2025-04-18] VITALS (7 sets, daily range): BP systolic 88–100; BP diastolic 61–75
[2025-04-18 04:29] LABS: BASOPHILS ABSOLUTE AUTO 0.04 K/mm3 (0.00-0.23); BASOPHILS PERCENT AUTO 1 % (0-2); EOSINOPHILS ABSOLUTE AUTO 0.04 K/mm3 (0.00-0.68); EOSINOPHILS PERCENT AUTO 1 % (0-6); Hematocrit 46.8 % (37.0-53.0); Hemoglobin 14.9 g/dL (13.5-17.5); IMMATURE GRAN ABSOLUTE AUTO 0.03 K/mm3 (0.00-0.10); IMMATURE GRAN PERCENT AUTO 0 % (0-1); LYMPHOCYTES ABSOLUTE AUTO 1.48 K/mm3 (0.84-5.20); LYMPHOCYTES PERCENT AUTO 19 % (21-46); MONOCYTES ABSOLUTE AUTO 0.99 K/mm3 (0.16-1.47); MONOCYTES PERCENT AUTO 13 % (4-13); Mean Corpuscular HGB Conc 31.8 g/dL (31.5-36.5); Mean Corpuscular Volume 95 fL (80-100); NEUTROPHILS ABSOLUTE AUTO 5.17 K/mm3 (1.96-9.15); NEUTROPHILS PERCENT AUTO 67 % (41-73); NRBC ABSOLUTE 0.00 K/mm3 (0.00-0.02); NRBC Auto 0.0 /100 WBC (0.0-0.2); Platelet Count 168 K/mm3 (150-400); RDW Coefficient Variation 15.9 % (11.7-14.2); RDW Standard Deviation 54.8 fL (35.1-46.3)
[2025-04-18 04:45] LABS: Prothrombin Time Results 19.7 Sec (9.7-11.5)
[2025-04-18 05:05] LABS: Alanine Aminotransfer (ALT/SGP 501.0 U/L (12-78); Albumin, Blood 3.0 g/dL (3.4-5.0); Albumin/Globulin Ratio 0.7 (0.8-1.8); Anion Gap 5.0 mmol/L (3-11); Aspartate Aminotrans (AST/SGOT 251.0 U/L (12-37); Bilirubin, Total 3.3 mg/dL (0.1-1.0); Blood Urea Nitrogen 40.0 mg/dL (8-24); CO2, Blood 40.0 mmol/L (21-32); Calcium, Blood 8.8 mg/dL (8.5-10.1); Chloride, Blood 86.0 mmol/L (98-108); Creatinine, Blood 1.05 mg/dL (0.60-1.20); Globulin, Blood 4.1 g/dL (2.2-4.0); Glucose, Blood 106.0 mg/dL (70-99); Magnesium, Blood 2.0 mg/dL (1.6-2.4); Potassium, Blood 4.0 mmol/L (3.5-5.5); Sodium, Blood 127.0 mmol/L (136-145); Total Protein, Blood 7.1 g/dL (6.4-8.2)
--- NOTE | 2025-04-18 06:03 | NUR ---
NOC SHIFT SUMMARY PT IS A+O X4 ABLE TO MAKE NEEDS KNOWN. KIND AND COOPERATIVE WITH CARES. PT CALDWELL CATH WAS LEAKING EARLY ON IN THE NIGHT, 10MLS WAS DRAINED FROM THE BALLON CATH WAS ADVANCED SLIGHTLY, BALLON REINFLATED, THIS SEEMS TO HAVE FIXED THE LEAKING. SECURMENT REPLACED. BED BATH PROVIDED, LIEN CHANGED, AND CATH CARE PROVIDED. GOOD OUTPUT OVER THE NIGHT, CALDWELL DRAINING WELL TO GRAVITY YELLOW COLORED URINE. PATIENT HAD A BM. CURRENTLY WEARING HIS CPAP RESTING IN BED. NO ACUTE COMPLAINTS FROM PATIENT OVER THE NIGHT. BED IN LOWEST POSTION, CALL LIGHT IN REACH. WILL REPORT TO ONCOMING RN.
--- NOTE | 2025-04-18 17:57 | NUR ---
SHIFT NOTE: PT REMAINS IN AFIB WITH NO ACUTE EVENTS THIS SHIFT. HE IS ON 2L NC WHEN AWAKE AND CPAP WHEN SLEEPING/NAPPING. HE IS ALERT AND ORIENTED AND ABLE TO MAKE HIS NEEDS KNOWN. HIS CALDWELL WAS CHANGED AND IS DRAINING TO GRAVITY YELLOW URINE. HE AMBULATED TO THE CHAIR WITH 1P ASSIST WITH A GAITBELT AND FWW. RECTAL TEMP PROBE PLACED FOR ACCURATE TEMP. PT AFEBRILE. CARE CONTINUES
--- NOTE | 2025-04-18 21:02 | NUR ---
NURSE NOTE CALL PLACED TO MD SWEENEY ABOUT BP TRENDING DOWN (SEE VITALS). PT STATES HE FEELS FINE, A+O X4 ABLE TO MAKE NEEDS KNOW. CPAP ON AND HE IS RESTING CURRENTLY. CALL LIGHT IN REACH
[2025-04-19] VITALS (14 sets, daily range): BP systolic 94–111; BP diastolic 59–82
[2025-04-19 04:23] LABS: BASOPHILS ABSOLUTE AUTO 0.03 K/mm3 (0.00-0.23); BASOPHILS PERCENT AUTO 0 % (0-2); EOSINOPHILS ABSOLUTE AUTO 0.07 K/mm3 (0.00-0.68); EOSINOPHILS PERCENT AUTO 1 % (0-6); Hematocrit 50.0 % (37.0-53.0); Hemoglobin 16.2 g/dL (13.5-17.5); IMMATURE GRAN ABSOLUTE AUTO 0.03 K/mm3 (0.00-0.10); IMMATURE GRAN PERCENT AUTO 0 % (0-1); LYMPHOCYTES ABSOLUTE AUTO 1.35 K/mm3 (0.84-5.20); LYMPHOCYTES PERCENT AUTO 17 % (21-46); MONOCYTES ABSOLUTE AUTO 0.94 K/mm3 (0.16-1.47); MONOCYTES PERCENT AUTO 12 % (4-13); Mean Corpuscular HGB Conc 32.4 g/dL (31.5-36.5); Mean Corpuscular Volume 95 fL (80-100); NEUTROPHILS ABSOLUTE AUTO 5.70 K/mm3 (1.96-9.15); NEUTROPHILS PERCENT AUTO 70 % (41-73); NRBC ABSOLUTE 0.00 K/mm3 (0.00-0.02); NRBC Auto 0.0 /100 WBC (0.0-0.2); Platelet Count 146 K/mm3 (150-400); RDW Coefficient Variation 15.7 % (11.7-14.2); RDW Standard Deviation 54.0 fL (35.1-46.3)
[2025-04-19 04:36] LABS: Prothrombin Time Results 29.3 Sec (9.7-11.5)
[2025-04-19 04:41] LABS: Magnesium, Blood 1.9 mg/dL (1.6-2.4)
[2025-04-19 04:42] LABS: Alanine Aminotransfer (ALT/SGP 374.0 U/L (12-78); Albumin, Blood 2.8 g/dL (3.4-5.0); Albumin/Globulin Ratio 0.6 (0.8-1.8); Anion Gap 8.0 mmol/L (3-11); Aspartate Aminotrans (AST/SGOT 145.0 U/L (12-37); Bilirubin, Total 3.7 mg/dL (0.1-1.0); Blood Urea Nitrogen 41.0 mg/dL (8-24); CO2, Blood 40.0 mmol/L (21-32); Calcium, Blood 9.1 mg/dL (8.5-10.1); Chloride, Blood 82.0 mmol/L (98-108); Creatinine, Blood 1.09 mg/dL (0.60-1.20); Globulin, Blood 4.8 g/dL (2.2-4.0); Glucose, Blood 104.0 mg/dL (70-99); Potassium, Blood 5.2 mmol/L (3.5-5.5); Sodium, Blood 125.0 mmol/L (136-145); Total Protein, Blood 7.6 g/dL (6.4-8.2)
--- NOTE | 2025-04-19 05:41 | NUR ---
NOC SHIFT SUMMARY PT IS A+O X4 ABLE TO MAKE NEEDS KNOWN, MOVES SELF IN BED, BUT WAS OFFERED REPOSTIONS FOR COMFORT T/O THE NIGHT. PT WAS ABLE TO REST ON AND OFF DURING THE NIGHT IN BETWEEN CARES. PT BP WAS SOFT AT THE START OF SHIFT BUT HAS SINCE BEEN STABLE (SEE VITALS). PT DENIES CHEST PAIN OR PRESSURE, DENIES NEEDS OF ANY KIND. SATTING 90% AND ABOVE ON CPAP DURING THE NIGHT, WEARS 2L NC WHEN AWAKE. ABDOMEN SOFT NONTENDER. CALDWELL CATH REMIANS IN PLACE WITH GOOD OUTPUT, URINE YELLOW IN COLOR. RECTAL TEMP IN PLACE. BED IN LOWEST POSTION, CALL LIGHT IN REACH. WILL REPORT TO ONCOMING RN.
--- NOTE | 2025-04-19 12:43 | NUR ---
MORNING NOTE THIS RN ASSUMED CARE AT APPROX 0715. PATIENT ALERT AND ORIENTED X4. COMMUNICATING NEEDS EFFECTIVELY. FOLLOWS COMMANDS APPROPRIATELY. TELEMETRY SHOWING AFIB 80s-90s. BP SOFT - SBP 90s-100s. MAP >65. DENIES CHEST PAIN, PRESSURE. +3 EDEMA TO BLE - DIURESING WELL. ON 2L VIA NC WHEN AWAKE - SATs 89-94%. USES CPAP W/ SLEEP - SATs >90%. DENIES SOB AT REST. CALDWELL CATHETER IN PLACE - DRAINING YELLOW URINE TO GRAVITY. BEDBATH COMPLETED. TOLERATING PO INTAKE. MD MCCORMICK AT BEDSIDE THIS AFTERNOON - NO NEW ORDERS RECEIVED. CALL LIGHT IN REACH.
--- NOTE | 2025-04-19 15:36 | NUR ---
REPORT GIVEN TO HILARIO RUGGIERO TO ASSUME CARE AT THIS TIME
--- NOTE | 2025-04-19 18:04 | NUR ---
EOS: ASSUMED PATIENT LATE INTO THE SHIFT. NO ACUTE CHANGES FROM PREVIOUS WITH PATIENT, REMAINS ALERT AND ORIENTED X 4, ABLE TO MAKE NEEDS KNOWN, STANDING WEIGHT FOR THIS RN WAS 109.6 kg. WHICH IS SIGNIFICANTLY DIFFERENT THAN CHARTED, WILL GET ANOTHER STANDING WEIGHT ONCE PATIENT MOVES BACK INTO BED PCT ALREADY INFORMED. PATIENT CALDWELL DRAINING TO GRAVITY WELL. DENIES NEED FOR BOWEL MEDS. PATIENT WITH IMPROVED TOLERANCE TO STAND PIVOTING. CALL LIGHT WITHIN REACH. NO ACUTE CONCERNS FROM THIS RN
[2025-04-20] VITALS (8 sets, daily range): BP systolic 91–110; BP diastolic 59–78
--- NOTE | 2025-04-20 04:03 | NUR ---
PT STABLE THROUGHOUT THE SHIFT. VITAL SIGNS WNL. PT COMPLIANT WITH CPAP USE. PT AOX4 AND HAS BEEN IN BED SINCE BEGINNING OF SHIFT. PREVIOUS SHIFT ASSESSED MOBILITY 1-2 ASSIST. PT ON 2L O2 WITH GOOD SPO2 WHILE AWAKE. HOME BASE LINE IS NO O2. JAVI CONTINUES TO HAVE GREAT OUTPUT, SEE I&O CHARTING.
[2025-04-20 04:39] LABS: BASOPHILS ABSOLUTE AUTO 0.03 K/mm3 (0.00-0.23); BASOPHILS PERCENT AUTO 0 % (0-2); EOSINOPHILS ABSOLUTE AUTO 0.06 K/mm3 (0.00-0.68); EOSINOPHILS PERCENT AUTO 1 % (0-6); Hematocrit 50.7 % (37.0-53.0); Hemoglobin 16.6 g/dL (13.5-17.5); IMMATURE GRAN ABSOLUTE AUTO 0.03 K/mm3 (0.00-0.10); IMMATURE GRAN PERCENT AUTO 0 % (0-1); LYMPHOCYTES ABSOLUTE AUTO 1.35 K/mm3 (0.84-5.20); LYMPHOCYTES PERCENT AUTO 16 % (21-46); MONOCYTES ABSOLUTE AUTO 0.95 K/mm3 (0.16-1.47); MONOCYTES PERCENT AUTO 11 % (4-13); Mean Corpuscular HGB Conc 32.7 g/dL (31.5-36.5); Mean Corpuscular Volume 92 fL (80-100); NEUTROPHILS ABSOLUTE AUTO 5.93 K/mm3 (1.96-9.15); NEUTROPHILS PERCENT AUTO 71 % (41-73); NRBC ABSOLUTE 0.00 K/mm3 (0.00-0.02); NRBC Auto 0.0 /100 WBC (0.0-0.2); Platelet Count 180 K/mm3 (150-400); RDW Coefficient Variation 15.2 % (11.7-14.2); RDW Standard Deviation 51.9 fL (35.1-46.3)
[2025-04-20 05:03] LABS: Prothrombin Time Results 43.6 Sec (9.7-11.5)
--- NOTE | 2025-04-20 05:09 | NUR ---
NURSE NOTE ASSUMED CARE OF THIS PATIENT AT APROX 0415. PT IS A+O X4 ABLE TO MAKE NEEDS KNOWN. CALDWELL CATH IN PLACE DRAINING TO GRAVITY. CATH CARE PROVIDED. BED IN LOWEST POSTION. CALL LIGHT IN REACH.
[2025-04-20 05:20] LABS: Alanine Aminotransfer (ALT/SGP 311 U/L (12-78); Albumin, Blood 3.3 g/dL (3.4-5.0); Albumin/Globulin Ratio 0.6 (0.8-1.8); Aspartate Aminotrans (AST/SGOT 115 U/L (12-37); Bilirubin, Total 4.3 mg/dL (0.1-1.0); Blood Urea Nitrogen 45 mg/dL (8-24); Calcium, Blood 10.2 mg/dL (8.5-10.1); Chloride, Blood 75 mmol/L (98-108); Creatinine, Blood 1.18 mg/dL (0.60-1.20); Globulin, Blood 5.2 g/dL (2.2-4.0); Glucose, Blood 99 mg/dL (70-99); Potassium, Blood 3.8 mmol/L (3.5-5.5); Sodium, Blood 123 mmol/L (136-145); Total Protein, Blood 8.5 g/dL (6.4-8.2)
[2025-04-20 05:21] LABS: Anion Gap Unable to Calculate mmol/L (3-11)
[2025-04-20 05:23] LABS: CO2, Blood >45 mmol/L (21-32)
--- NOTE | 2025-04-20 05:44 | NUR ---
UPDATE NOTIFIED DR. MORE ABOUT PT'S CRITICAL CO2 WITH AM CHEM PANEL. ORDERS FOR VBG TO BE DRAWN NOW
[2025-04-20 06:18] LABS: pH Blood Venous 7.52 (7.34-7.37)
--- NOTE | 2025-04-20 16:48 | NUR ---
SHIFT SUMMARY PT REMAINS ALERT AND ORIENTED. BP STABLE. HR REMAINS AFIB 80'S. O2 SATS HAVE REMAINED ABOVE 90% ON 2L NC. PT HAS USED CPAP WITH 2L BLEED IN AT TIMES THROUGHOUT SHIFT. PT DENIES ANY PAIN. CALDWELL PATENT AND DRAINING. PT UP MULTIPLE TIMES THROUGHOUT SHIFT WITH 1 ASSIST, FWW AND GB. FAMILY AT BEDSIDE THIS SHIFT AND UPDATED ON PLAN OF CARE. BED BATH PROVIDED THIS AFTERNOON. WILL CONTINUE PLAN OF CARE AND REPORT OFF TO ONCOMING RN
[2025-04-21 04:07] VITALS: BP 89/58
[2025-04-21 04:09] LABS: BASOPHILS ABSOLUTE AUTO 0.02 K/mm3 (0.00-0.23); BASOPHILS PERCENT AUTO 0 % (0-2); EOSINOPHILS ABSOLUTE AUTO 0.06 K/mm3 (0.00-0.68); EOSINOPHILS PERCENT AUTO 1 % (0-6); Hematocrit 49.1 % (37.0-53.0); Hemoglobin 16.4 g/dL (13.5-17.5); IMMATURE GRAN ABSOLUTE AUTO 0.04 K/mm3 (0.00-0.10); IMMATURE GRAN PERCENT AUTO 1 % (0-1); LYMPHOCYTES ABSOLUTE AUTO 1.19 K/mm3 (0.84-5.20); LYMPHOCYTES PERCENT AUTO 16 % (21-46); MONOCYTES ABSOLUTE AUTO 0.90 K/mm3 (0.16-1.47); MONOCYTES PERCENT AUTO 12 % (4-13); Mean Corpuscular HGB Conc 33.4 g/dL (31.5-36.5); Mean Corpuscular Volume 92 fL (80-100); NEUTROPHILS ABSOLUTE AUTO 5.49 K/mm3 (1.96-9.15); NEUTROPHILS PERCENT AUTO 71 % (41-73); NRBC ABSOLUTE 0.00 K/mm3 (0.00-0.02); NRBC Auto 0.0 /100 WBC (0.0-0.2); Platelet Count 161 K/mm3 (150-400); RDW Coefficient Variation 15.1 % (11.7-14.2); RDW Standard Deviation 51.0 fL (35.1-46.3)
[2025-04-21 05:24] LABS: Prothrombin Time Results 32.4 Sec (9.7-11.5)
--- NOTE | 2025-04-21 06:41 | NUR ---
SHIFT SUMMARY. PATIENT IS ALERT AND ORIENTED, CALLS APPROPRIATELY AND IS ABLE TO MAKE HIS NEEDS KNOWN. PATIENT TIRED AT BEGINNING OF SHIFT-CPAP ON PATIENT FOR SLEEP-PATIENT SLEPT WELL T/O THE NIGHT. PATIENTS BLOOD PRESSURE SOFT THIS SHIFT-MAP REMAINS >65. PATIENT DENIES CHEST PAIN/PRESSURE/TIGHTNESS/PALPATATIONS AND/OR DIZZINESS/LIGHT HEADEDNESS. NO ACUTE CHANGES NOTED. BED IS LOCKED IN THE LOWEST POSITION WITH CALL LIGHT IN REACH. CARE IS ONGOING.
[2025-04-21 09:14] VITALS: BP 102/66
[2025-04-21 12:27] VITALS: BP 78/58
--- NOTE | 2025-04-21 12:31 | NUR ---
SOFT BP SYSTOLIC BP 78, PT RESTING IN BED WITH BIPAP IN PLACE, NOT SYMPTOMATIC AT THIS TIME. WILL RECHECK BP IN APPROX 15 MINUTES
[2025-04-21 12:35] LABS: Anion Gap 8.0 mmol/L (3-11); Blood Urea Nitrogen 54.0 mg/dL (8-24); CO2, Blood 45.0 mmol/L (21-32); Calcium, Blood 9.9 mg/dL (8.5-10.1); Chloride, Blood 82.0 mmol/L (98-108); Creatinine, Blood 1.2 mg/dL (0.60-1.20); Glucose, Blood 93.0 mg/dL (70-99); Potassium, Blood 3.6 mmol/L (3.5-5.5); Sodium, Blood 131.0 mmol/L (136-145)
[2025-04-21 12:49] VITALS: BP 92/53
--- NOTE | 2025-04-21 12:54 | NUR ---
BP RECHECK RECHECKED BP AFTER PRIOR SYSTOLIC < 80. PT STILL RESTING IN BED, REPORTS STILL BEING ASYMPTOMATIC, BP IMPROVED WITH SYSTOLIC > 90
--- NOTE | 2025-04-21 17:54 | NUR ---
SHIFT SUMMARY PT HAD SOME SOFT BP TODAY BUT WAS ASYMPTOMATIC, SOME ELEVATED BP WHEN GETTING UP WITH THERAPY BUT HE DID NOT REPORT HAVING ANY DISCOMFORT. OTHER THAN WORKING WITH THERAPY HE WAS IN BED MOST OF THE DAY, HE WAS GIVEN SOME BED EXERCISES BY THERAPY THAT HE CAN DO WITHOUT NEEDING TO GET UP. ONE BMJAVI REMAINED IN PLACE TODAY. NO ACUTE EVENTS, CALL LIGHT IN REACH.
[2025-04-21 19:09] VITALS: BP 122/99
[2025-04-21 23:48] VITALS: BP 77/61
[2025-04-22] VITALS (9 sets, daily range): BP systolic 69–103; BP diastolic 50–82
[2025-04-22 04:03] LABS: BASOPHILS ABSOLUTE AUTO 0.04 K/mm3 (0.00-0.23); BASOPHILS PERCENT AUTO 1 % (0-2); EOSINOPHILS ABSOLUTE AUTO 0.09 K/mm3 (0.00-0.68); EOSINOPHILS PERCENT AUTO 1 % (0-6); Hematocrit 48.6 % (37.0-53.0); Hemoglobin 16.4 g/dL (13.5-17.5); IMMATURE GRAN ABSOLUTE AUTO 0.02 K/mm3 (0.00-0.10); IMMATURE GRAN PERCENT AUTO 0 % (0-1); LYMPHOCYTES ABSOLUTE AUTO 1.36 K/mm3 (0.84-5.20); LYMPHOCYTES PERCENT AUTO 17 % (21-46); MONOCYTES ABSOLUTE AUTO 1.05 K/mm3 (0.16-1.47); MONOCYTES PERCENT AUTO 13 % (4-13); Mean Corpuscular HGB Conc 33.7 g/dL (31.5-36.5); Mean Corpuscular Volume 92 fL (80-100); NEUTROPHILS ABSOLUTE AUTO 5.63 K/mm3 (1.96-9.15); NEUTROPHILS PERCENT AUTO 69 % (41-73); NRBC ABSOLUTE 0.00 K/mm3 (0.00-0.02); NRBC Auto 0.0 /100 WBC (0.0-0.2); Platelet Count 184 K/mm3 (150-400); RDW Coefficient Variation 15.0 % (11.7-14.2); RDW Standard Deviation 49.7 fL (35.1-46.3)
--- NOTE | 2025-04-22 04:22 | NUR ---
SHIFT SUMMARY. PATIENT IS A&OX4, CALLS APPROPRIATELY AND IS ABLE TO MAKE HIS NEEDS KNOWN. PATIENTS BLOOD PRESSURES SOFT T/O NIGHT-PATIENT AYMPTOMATIC OF SOFT BLOOD PRESSURES. DENYING DIZZINESS/LIGHT HEADEDNESS. PATIENT AWAKE IN BED AT BEGINNING OF SHIFT WATCHING TV-PATIENT WEARING BIPAP T/O NIGHT WITH NO ISSUES, PATIENT USES 2LPM VIA NASAL CANNULA WHEN AWAKE-THIS IS PATIENTS BASELINE. NO ACUTE EVENTS NOTED TONIGHT. BED IS LOCKED IN THE LOWEST POSITION WITH CALL LIGHT IN [facility]. CARE IS ONGOING.
[2025-04-22 04:25] LABS: Prothrombin Time Results 24.4 Sec (9.7-11.5)
[2025-04-22 04:38] LABS: Alanine Aminotransfer (ALT/SGP 156.0 U/L (12-78); Albumin, Blood 2.8 g/dL (3.4-5.0); Albumin/Globulin Ratio 0.6 (0.8-1.8); Anion Gap 9.0 mmol/L (3-11); Aspartate Aminotrans (AST/SGOT 76.0 U/L (12-37); Bilirubin, Total 3.3 mg/dL (0.1-1.0); Blood Urea Nitrogen 58.0 mg/dL (8-24); CO2, Blood 43.0 mmol/L (21-32); Calcium, Blood 9.1 mg/dL (8.5-10.1); Chloride, Blood 74.0 mmol/L (98-108); Creatinine, Blood 1.34 mg/dL (0.60-1.20); Globulin, Blood 4.4 g/dL (2.2-4.0); Glucose, Blood 92.0 mg/dL (70-99); Magnesium, Blood 2.4 mg/dL (1.6-2.4); Potassium, Blood 3.5 mmol/L (3.5-5.5); Sodium, Blood 122.0 mmol/L (136-145); Total Protein, Blood 7.2 g/dL (6.4-8.2)
--- NOTE | 2025-04-22 10:33 | NUR ---
THIS RN CALLED DR. DORAN ABOUT THE PT'S BP 69/50 (57). DR. DORAN WOULD LIKE 250CC BOLUS GIVEN TO THE PT AND THE ENTRESTO D/C'D. ALSO, WHILE ON THE PHONE WITH THE DR. DORAN THIS RN MADE THE AWARE OF LOOSE STOOLS. IMMODIUM 2MG Q4P ORDERED. SEE NOTES FOR UPDATES.
[2025-04-22] MEDS ORDERED: NS 250 ML IV ONE (10:35)
--- NOTE | 2025-04-22 11:40 | NUR ---
MORNING SUMMARY THE PT IS A&OX4, CALLS APPROPRAITELY, AND MAKES HIS NEEDS KNOWN. THE PT IS A 1P ASSIST W/ FWW AND GB. HE HAS BEEN UP IN THE CHAIR FOR MEALS AND HAD A BEDBATH THIS MORNING. INSULIN AND BLOOD SUGAR CHECKS WERE D/C'D. PHOTOS WERE TAKEN OF THE PT'S WOUNDS BECAUSE 04/14/25 WAS THE LAST TIME PHOTOS WERE TAKEN. IMPROVEMENT NOTED ON ALL WOUNDS. THE PT'S CALDWELL WAS D/C'D THIS MORNING AND A MALE WICKING SYSTEM WAS PLACED D/C INC. THE PT HAS INC LOOSE STOOLS AND WAS STARTED ON IMMODIUM 2MG Q4P. HE HAS BEEN AFIB 60'S-90'S ON TELE AND BP HAS BEEN LOW. THE TP RECIEVED 250CC NS BOLUS PER DR. DORAN AND HIS BLOOD PRESSURE IS WITH SOME IMPROVEMENT. PT IS SYMPTOMATIC OF DIZZINESS WITH ACTIVITIES. HE HAS BEEN ON HIS BL OXYGEN 2L NC W/ SP02 >93% AND CPAP W/ 2L BLEED IN. THE PT DENIES ANY SOB. SEE NOTES FOR UPDATES.
--- NOTE | 2025-04-22 14:09 | NUR ---
PT HAD A 10 BEAT RUN OF VTACH. THIS RN CALLED DR. DORAN AND LET HIM KNOW. A PHOS WAS ORDERED TO ADD ON MORNING LABS. BP STABLE, MAP >60. PT WAS ASYMPTOMATIC AND WAS ASLEEP DURING THE RUN OF VTACH. SEE NOTES FOR UPDATES.
--- NOTE | 2025-04-22 22:54 | NUR ---
SHIFT SUMMARY: PT TRANSFERRED TO MEDICAL FLOOR AT 2230. PT A&OX4 CALM AND COOPERATIVE. NOTABLE FREQUENT JERKING MOVEMENTS. PT REPORTS JERKING MOVEMENTS ARE NEW AND STARTED A COUPLE DAYS AGO. AFIB 70S-80S AND SOFT BPS WITH A MAP >65. PT WEARING CPAP WHILE SLEEPING AND MAINTAINING >92% SPO2. NO BM DURING SHIFT. WICKING SYSTEM IN PLACE WITH ADEQUATE OUTPUT. REPORT GIVEN TO ROOM 360 NURSE.
--- NOTE | 2025-04-22 23:14 | NUR ---
TRANSFER NOTE: PT TRANSFERRED FROM PCU 9 TO 360, BEDS EXCHANGED. PT PUT BACK ON BIPAP. PT TIRED BUT ANSWERING QUESTIONS APPROPRIATELY, MALE PUREWICK IN PLACE. CLAIMS TO BE FEELING BETTER THAN ADMIT BUT STILL "NOT GREAT". PT ON 2L NC WHILE AWAKE. HAVING SOME SMALL JERKS AND TICKS, PCU NURSE SAYS THEY SUSPECT DUE TO NO LONGER TAKING PAXIL AND THAT PROVIDER IS AWARE. PT ORIENTED TO ROOM, BED IN LOWEST POSITION, CALL LIGHT IN REACH. CONTINUING CARE.
[2025-04-23] VITALS (9 sets, daily range): BP systolic 71–215; BP diastolic 34–189
--- NOTE | 2025-04-23 05:16 | NUR ---
SHIFT SUMMARY: PT AOX4 VERY TIRED ON HIS TRANSFER UP. TOLERATING BIPAP WELL SATTING WELL. AFIB IN THE 80S PER TELE. PT SLEPT WELL THROUGH THE NIGHT. MALE PUREWIBRIGIDO CHANGED, NO BM DESPITE PT THINKING HE HAD ONE. PT STATES TO BE FEELING BETTER THAN ON ADMISSION BUT STILL TIRED. CALLS APPROPRIATELY AND ABLE TO MAKE NEEDS KNOWN. NO ACUTE OVERNIGHT EVENTS. PT FOLLOWS COMMANDS AND ABLE TO ASSIST IN TURNS AND CHANGES. PT IN BED RESTING, BED IN LOWEST POSITION, CALL LIGHT IN REACH. CONTINUING CARE.
[2025-04-23 06:31] LABS: BASOPHILS ABSOLUTE AUTO 0.03 K/mm3 (0.00-0.23); BASOPHILS PERCENT AUTO 0 % (0-2); EOSINOPHILS ABSOLUTE AUTO 0.07 K/mm3 (0.00-0.68); EOSINOPHILS PERCENT AUTO 1 % (0-6); Hematocrit 44.9 % (37.0-53.0); Hemoglobin 15.1 g/dL (13.5-17.5); IMMATURE GRAN ABSOLUTE AUTO 0.02 K/mm3 (0.00-0.10); IMMATURE GRAN PERCENT AUTO 0 % (0-1); LYMPHOCYTES ABSOLUTE AUTO 1.31 K/mm3 (0.84-5.20); LYMPHOCYTES PERCENT AUTO 18 % (21-46); MONOCYTES ABSOLUTE AUTO 1.00 K/mm3 (0.16-1.47); MONOCYTES PERCENT AUTO 14 % (4-13); Mean Corpuscular HGB Conc 33.6 g/dL (31.5-36.5); Mean Corpuscular Volume 91 fL (80-100); NEUTROPHILS ABSOLUTE AUTO 4.78 K/mm3 (1.96-9.15); NEUTROPHILS PERCENT AUTO 66 % (41-73); NRBC ABSOLUTE 0.00 K/mm3 (0.00-0.02); NRBC Auto 0.0 /100 WBC (0.0-0.2); Platelet Count 181 K/mm3 (150-400); RDW Coefficient Variation 15.1 % (11.7-14.2); RDW Standard Deviation 49.8 fL (35.1-46.3)
[2025-04-23 06:41] LABS: Prothrombin Time Results 18.4 Sec (9.7-11.5)
[2025-04-23 06:50] LABS: Alanine Aminotransfer (ALT/SGP 122.0 U/L (12-78); Albumin, Blood 2.7 g/dL (3.4-5.0); Albumin/Globulin Ratio 0.6 (0.8-1.8); Anion Gap 8.0 mmol/L (3-11); Aspartate Aminotrans (AST/SGOT 75.0 U/L (12-37); Bilirubin, Total 3.1 mg/dL (0.1-1.0); Blood Urea Nitrogen 65.0 mg/dL (8-24); CO2, Blood 41.0 mmol/L (21-32); Calcium, Blood 8.9 mg/dL (8.5-10.1); Chloride, Blood 77.0 mmol/L (98-108); Creatinine, Blood 1.33 mg/dL (0.60-1.20); Globulin, Blood 4.4 g/dL (2.2-4.0); Glucose, Blood 91.0 mg/dL (70-99); Potassium, Blood 3.8 mmol/L (3.5-5.5); Sodium, Blood 122.0 mmol/L (136-145); Total Protein, Blood 7.1 g/dL (6.4-8.2)
[2025-04-23] MEDS ORDERED: NS 500 ML IV SCH (10:00)
--- NOTE | 2025-04-23 16:21 | NUR ---
SHIFT SUMMARY PT IS A/OX4. SOFT BLOOD PRESSURE THIS SHIFT, DR DORAN AWARE. USING CPAP WHILE ASLEEP AND 2L NC WHILE AWAKE, PT REPORTS RA AT BASELINE. ON CONT PULSE OX, SATS >92%. ON TELE RUNNING AFIB IN THE 70-80'S. PURWICK IN PLACE DRAINING TEA/JUNIOR COLORED URINE. PT IS PLEASANT AND COOPERATIVE WITH CARE AND CALLS APPROPRIATELY USING THE CALL LIGHT.
[2025-04-24] VITALS (7 sets, daily range): BP systolic 76–97; BP diastolic 52–66
[2025-04-24 04:51] LABS: BASOPHILS ABSOLUTE AUTO 0.03 K/mm3 (0.00-0.23); BASOPHILS PERCENT AUTO 1 % (0-2); EOSINOPHILS ABSOLUTE AUTO 0.06 K/mm3 (0.00-0.68); EOSINOPHILS PERCENT AUTO 1 % (0-6); Hematocrit 43.3 % (37.0-53.0); Hemoglobin 14.5 g/dL (13.5-17.5); IMMATURE GRAN ABSOLUTE AUTO 0.02 K/mm3 (0.00-0.10); IMMATURE GRAN PERCENT AUTO 0 % (0-1); LYMPHOCYTES ABSOLUTE AUTO 1.42 K/mm3 (0.84-5.20); LYMPHOCYTES PERCENT AUTO 22 % (21-46); MONOCYTES ABSOLUTE AUTO 0.97 K/mm3 (0.16-1.47); MONOCYTES PERCENT AUTO 15 % (4-13); Mean Corpuscular HGB Conc 33.5 g/dL (31.5-36.5); Mean Corpuscular Volume 90 fL (80-100); NEUTROPHILS ABSOLUTE AUTO 3.86 K/mm3 (1.96-9.15); NEUTROPHILS PERCENT AUTO 61 % (41-73); NRBC ABSOLUTE 0.00 K/mm3 (0.00-0.02); NRBC Auto 0.0 /100 WBC (0.0-0.2); Platelet Count 187 K/mm3 (150-400); RDW Coefficient Variation 15.2 % (11.7-14.2); RDW Standard Deviation 49.6 fL (35.1-46.3)
[2025-04-24 05:16] LABS: Prothrombin Time Results 16.4 Sec (9.7-11.5)
[2025-04-24 05:30] LABS: Anion Gap 10 mmol/L (3-11); Blood Urea Nitrogen 69 mg/dL (8-24); CO2, Blood 40 mmol/L (21-32); Calcium, Blood 8.4 mg/dL (8.5-10.1); Chloride, Blood 80 mmol/L (98-108); Creatinine, Blood 1.44 mg/dL (0.60-1.20); Glucose, Blood 88 mg/dL (70-99); Potassium, Blood 3.6 mmol/L (3.5-5.5); Sodium, Blood 126 mmol/L (136-145)
--- NOTE | 2025-04-24 05:32 | NUR ---
SHIFT SUMMARY PT ADMITTED FOR RAPID ATRIAL FIBRILLATION. . PT IS ALERT AND ORIENTED TIMES 4 . PT HAS LEFT POWER GLIDE ACCESS AND LEFT HAND IV. PT REQUIRES SUPPLEMENTAL O2 2L DURING DAY AND USES C-PAP DURING THE NIGHT. . PT APPEARED TO SLEEP ON AND OFF THROUGH THE NIGHT WITHOUT ISSUE. PT IS COOPERATIVE WITH TREATMENT FROM STAFF. PT ON TELE READING A-FIB BB 92 . PT HAS PUREWICK PLACED. PT TAKES MEDICATION WHOLE WITH WATER. BED IN LOW POSITION, CALL LIGHT WITHIN REACH, RAILS TIMES 2.
--- NOTE | 2025-04-24 09:09 | NUR ---
THIS RN NOTIFIED BY LYYN THAT PT HAD 5 BEATS OF V TACH WHILE WORKING WITH OCCUPATIONAL THERAPY. PT REMAIN ASYMPTOMATIC. ATTEMPT TO NOTIFY DR DORAN, UNABLE TO REACH AT THIS TIME.
--- NOTE | 2025-04-24 17:12 | NUR ---
SHIFT SUMMARY PT IS A/OX4. BEDREST AT THIS TIME R/T HYPOTENSION. BP REMAINS SOFT WITH IMPROVEMENT FROM YESTERDAY. PT IS ON 2-3L NC WHILE AWAKE AND USING THE CPAP WHILE ASLEEP. ON CONT PULSE OX, SATS >92% WITH OCCASSIONAL DESATS IN THE 80'S WITH QUICK RETURN BACK INTO THE 90'S WHEN PT INSTRUCTED TO TAKE SOME DEEP BREATHS. PURWICK IN PLACE DRAINING JUNIOR COLORED URINE. FAMILY AT BEDSIDE THIS AFTERNOON. PT IS PLEASANT AND COOPERATIVE WITH CARE AND CALLS APPROPRIATLEY USING THE CALL LIGHT.
[2025-04-25] VITALS (8 sets, daily range): BP systolic 83–185; BP diastolic 55–163
[2025-04-25 04:44] LABS: BASOPHILS ABSOLUTE AUTO 0.05 K/mm3 (0.00-0.23); BASOPHILS PERCENT AUTO 1 % (0-2); EOSINOPHILS ABSOLUTE AUTO 0.06 K/mm3 (0.00-0.68); EOSINOPHILS PERCENT AUTO 1 % (0-6); Hematocrit 46.9 % (37.0-53.0); Hemoglobin 15.7 g/dL (13.5-17.5); IMMATURE GRAN ABSOLUTE AUTO 0.02 K/mm3 (0.00-0.10); IMMATURE GRAN PERCENT AUTO 0 % (0-1); LYMPHOCYTES ABSOLUTE AUTO 1.45 K/mm3 (0.84-5.20); LYMPHOCYTES PERCENT AUTO 23 % (21-46); MONOCYTES ABSOLUTE AUTO 0.85 K/mm3 (0.16-1.47); MONOCYTES PERCENT AUTO 13 % (4-13); Mean Corpuscular HGB Conc 33.5 g/dL (31.5-36.5); Mean Corpuscular Volume 93 fL (80-100); NEUTROPHILS ABSOLUTE AUTO 3.94 K/mm3 (1.96-9.15); NEUTROPHILS PERCENT AUTO 62 % (41-73); NRBC ABSOLUTE 0.00 K/mm3 (0.00-0.02); NRBC Auto 0.0 /100 WBC (0.0-0.2); Platelet Count 181 K/mm3 (150-400); RDW Coefficient Variation 15.2 % (11.7-14.2); RDW Standard Deviation 52.2 fL (35.1-46.3)
[2025-04-25 04:58] LABS: Prothrombin Time Results 17.9 Sec (9.7-11.5)
[2025-04-25 05:08] LABS: Anion Gap 6.0 mmol/L (3-11); Blood Urea Nitrogen 58.0 mg/dL (8-24); CO2, Blood 38.0 mmol/L (21-32); Calcium, Blood 9.4 mg/dL (8.5-10.1); Chloride, Blood 87.0 mmol/L (98-108); Creatinine, Blood 1.15 mg/dL (0.60-1.20); Glucose, Blood 94.0 mg/dL (70-99); Potassium, Blood 3.7 mmol/L (3.5-5.5); Sodium, Blood 127.0 mmol/L (136-145)
--- NOTE | 2025-04-25 06:04 | NUR ---
SHIFT SUMMARY: Pt is admitted for afib with RVR and is a full code. Is alert and able to make needs known. ADLs have been mostly 1p but did not get out of bed. IV to left hand and powerglide to left upper arm are patent with dressings that are CDI. telly noted afib n the 90s with a bundle branch and PVCs. pure wick in place and draining clear yellow urine. At the start of shift 86 SBP was noted. Map of 70. Was reported to provider who gave instructions to monitor based on history. The PT did not display any SX. wore CPAP through most of the night. When not wearing CPAP was on 2lpm via NC.
--- NOTE | 2025-04-25 09:00 | NUR ---
Pt laying in bed with cpap in place placed on 2 liters 02, a/ox4, pleasant and cooperative with care, follows commands well, states he's doing ok, had a good night, denies pain, asked about tremor in left hand, he states not normal "im just cold", lungs are clear in upper, but shallow resp, dim in bases, resp even and unlabored, currently on 2 liters 02 via n/c, no cough noted, hrirr, tele in place running afib with bbb and pvcs, rate 80's to 90's, trace edema noted to b/l le ppp +1, cap refill <3sec, vs stable, afebrile, piv to lh and power glide to cadence sites are clear and patent, btx4, abd flat soft nontender, voids via purwick at this time, urine is clear yellow, skin c/w/d, general weakness, two person assist, call light in reach.
--- NOTE | 2025-04-25 18:10 | NUR ---
no acute changes this shift, therapy worked with him this afternoon, has been turned, had a bedbath, no complaints or needs, uses cpap when sleeping, call light in reach.
[2025-04-25] MEDS ORDERED: Labetalol HCL 5 MG/ML 4ML Injection (Single Dose) IV PRN (23:55)
--- NOTE | 2025-04-25 23:57 | NUR ---
NEW T-ORDER RECEIVED FROM THE ON-CALL HOSPITALIST SOLAR PROJECT MANAGER.EFREM: LABETALOL IV 10MG Q4HRS PRN FOR SYSTOLIC>180. ENTERED TO [place], SEE EMAR.
[2025-04-26] VITALS (7 sets, daily range): BP systolic 61–90; BP diastolic 45–64
[2025-04-26 04:45] LABS: BASOPHILS ABSOLUTE AUTO 0.05 K/mm3 (0.00-0.23); BASOPHILS PERCENT AUTO 1 % (0-2); EOSINOPHILS ABSOLUTE AUTO 0.09 K/mm3 (0.00-0.68); EOSINOPHILS PERCENT AUTO 1 % (0-6); Hematocrit 50.2 % (37.0-53.0); Hemoglobin 15.9 g/dL (13.5-17.5); IMMATURE GRAN ABSOLUTE AUTO 0.02 K/mm3 (0.00-0.10); IMMATURE GRAN PERCENT AUTO 0 % (0-1); LYMPHOCYTES ABSOLUTE AUTO 1.61 K/mm3 (0.84-5.20); LYMPHOCYTES PERCENT AUTO 22 % (21-46); MONOCYTES ABSOLUTE AUTO 0.90 K/mm3 (0.16-1.47); MONOCYTES PERCENT AUTO 12 % (4-13); Mean Corpuscular HGB Conc 31.7 g/dL (31.5-36.5); Mean Corpuscular Volume 93 fL (80-100); NEUTROPHILS ABSOLUTE AUTO 4.59 K/mm3 (1.96-9.15); NEUTROPHILS PERCENT AUTO 63 % (41-73); NRBC ABSOLUTE 0.00 K/mm3 (0.00-0.02); NRBC Auto 0.0 /100 WBC (0.0-0.2); Platelet Count 187 K/mm3 (150-400); RDW Coefficient Variation 15.2 % (11.7-14.2); RDW Standard Deviation 52.3 fL (35.1-46.3)
[2025-04-26 05:03] LABS: Prothrombin Time Results 25.9 Sec (9.7-11.5)
[2025-04-26 05:12] LABS: Anion Gap 7.0 mmol/L (3-11); Blood Urea Nitrogen 58.0 mg/dL (8-24); CO2, Blood 34.0 mmol/L (21-32); Calcium, Blood 9.0 mg/dL (8.5-10.1); Chloride, Blood 90.0 mmol/L (98-108); Creatinine, Blood 1.14 mg/dL (0.60-1.20); Glucose, Blood 95.0 mg/dL (70-99); Potassium, Blood 3.6 mmol/L (3.5-5.5); Sodium, Blood 127.0 mmol/L (136-145)
--- NOTE | 2025-04-26 05:19 | NUR ---
SHIFT SUMMARY NO ACUTE EVENTS DURING THIS SHIFT. @0500 PT HAD 7 BEAT RUN OF V-TAC, ON-CALL HOSPITALIST DR. MORGAN NOTIFIED, NO NEW ORDERS, MONITOR THIS AM LABS INCLUDING MAG LEVEL. ASYMPTOMATIC, LAYING/RESTING WITH CPAP (3L BLEED), RR EVEN, UNLABORED. TELE: AFIB @74. AT HS TELE ALSO SR @80 WITH BBB FOR A SHORT MOMENT. HX PACEMAKER. PT DENIES PAIN AND DISCOMFORT WELL DENIES CP/PRESSURE DURING THIS SHIFT. PUREWICK DRAINING YELLOW COLOR URINE. BEDREST D/T HYPOTENSION. SOFT BP'S. BED AT THE LOWEST POSITION, CALL LIGHT W/I REACH. PT IS A/O X4, PLEASANT, AND ABLE TO MAKE HIS NEEDS KNOWN.
[2025-04-26 07:10] LABS: Alanine Aminotransfer (ALT/SGP 140.0 U/L (12-78); Albumin, Blood 3.1 g/dL (3.4-5.0); Albumin/Globulin Ratio 0.6 (0.8-1.8); Anion Gap 10.0 mmol/L (3-11); Aspartate Aminotrans (AST/SGOT 146.0 U/L (12-37); Bilirubin, Total 2.0 mg/dL (0.1-1.0); Blood Urea Nitrogen 57.0 mg/dL (8-24); CO2, Blood 31.0 mmol/L (21-32); Calcium, Blood 9.1 mg/dL (8.5-10.1); Chloride, Blood 91.0 mmol/L (98-108); Creatinine, Blood 1.14 mg/dL (0.60-1.20); Globulin, Blood 4.8 g/dL (2.2-4.0); Glucose, Blood 93.0 mg/dL (70-99); Magnesium, Blood 2.9 mg/dL (1.6-2.4); Potassium, Blood 3.7 mmol/L (3.5-5.5); Sodium, Blood 128.0 mmol/L (136-145); Total Protein, Blood 7.9 g/dL (6.4-8.2)
--- NOTE | 2025-04-26 07:26 | NUR ---
pt laying in bed with cpap in place, wakes easily, a/ox4, pleasant and cooperative with care, follows commands well, denies pain, states he slept well last night, lungs are clear in upper [place], dim in bases, with shallow resp on 2-3 liters 02 when off cpap, no cough noted, on cont pulse ox, hrirr, tele in place running afib with bbb with pvc's, trace edema noted to b/l le, ppp+1, cap refill<3 sec, vs stable, afebrile, piv to lh, power glide to cadence site is clear and patent, btx4, abd flat soft nontender, voids via male purwick, skin c/w/d, labor utilization superintendent =, dpfe =, tom, call light in reach.
--- NOTE | 2025-04-26 18:33 | NUR ---
Pt had an uneventful day, no complaints or needs at this time, reads books when not sleeping, call light in reach.
[2025-04-26 21:10] LABS: Anion Gap 8.0 mmol/L (3-11); Blood Urea Nitrogen 52.0 mg/dL (8-24); CO2, Blood 36.0 mmol/L (21-32); Calcium, Blood 8.7 mg/dL (8.5-10.1); Chloride, Blood 88.0 mmol/L (98-108); Creatinine, Blood 1.09 mg/dL (0.60-1.20); Glucose, Blood 115.0 mg/dL (70-99); Magnesium, Blood 2.7 mg/dL (1.6-2.4); Potassium, Blood 3.8 mmol/L (3.5-5.5); Sodium, Blood 128.0 mmol/L (136-145)
--- NOTE | 2025-04-26 21:48 | NUR ---
@2004 PER AUTOMATIC NAILING MACHINE OPERATOR JLUIS Escamilla PT HAD A 23 RUN OF V-TACH. PT'S BP 90/62 MANUALLY, PULSE OX MONITORING P. 77, O2 @3L VIA NASAL CANNULA 97%. MAP OF 64. ON TELE PT CONTINUES ON A-FIB. PULSE IN 70'S-80'S. THIS GAS OPERATION MANAGER CONTACTED THE ON-CALL HOSPITALIST MANJINDER. PER CONVERSTATION, EFREM WILL PUT IN REPEAT LABS FOR AM, WILL CONTINUE TO MONITOR. PT DENIES SOB, CP/PRESSURE AND PAIN. PT IS ASYMPTOMATIC. BED AT THE LOWEST POSITION, CALL LIGHT WITHIN REACH. PT IS ABLE TO MAKE HIS NEEDS KNOWN.
[2025-04-27 04:17] VITALS: BP 98/70
--- NOTE | 2025-04-27 04:37 | NUR ---
SHIFT SUMMARY PT HAD A 23 BEAT RUN OF V-TACH AT HS. SEE PREVIOUS NOTE. VSS, ASYMTOMATIC. PROVIDER NOTIFITED. PT IS ON A-FIB IN THE 80'S. PT DENIES CP/PRESSURE. PUREWICK DRAINING YELLOW COLOR URINE. UA LABS- PENDING RESULTS. PT CONTINUES TO HAVE SOFT BP'S, TAKEN MANUALLY. PROVIDER IS AWARE. PT IS A/O X4, PLEASANT AND ABLE TO MAKE HIS NEEDS KNOWN. BED AT THE LOWEST POSITION, CALL LIGHT W/I REACH.
[2025-04-27 05:06] LABS: BASOPHILS ABSOLUTE AUTO 0.04 K/mm3 (0.00-0.23); BASOPHILS PERCENT AUTO 1 % (0-2); EOSINOPHILS ABSOLUTE AUTO 0.07 K/mm3 (0.00-0.68); EOSINOPHILS PERCENT AUTO 1 % (0-6); Hematocrit 46.9 % (37.0-53.0); Hemoglobin 14.9 g/dL (13.5-17.5); IMMATURE GRAN ABSOLUTE AUTO 0.02 K/mm3 (0.00-0.10); IMMATURE GRAN PERCENT AUTO 0 % (0-1); LYMPHOCYTES ABSOLUTE AUTO 1.81 K/mm3 (0.84-5.20); LYMPHOCYTES PERCENT AUTO 26 % (21-46); MONOCYTES ABSOLUTE AUTO 0.86 K/mm3 (0.16-1.47); MONOCYTES PERCENT AUTO 12 % (4-13); Mean Corpuscular HGB Conc 31.8 g/dL (31.5-36.5); Mean Corpuscular Volume 94 fL (80-100); NEUTROPHILS ABSOLUTE AUTO 4.29 K/mm3 (1.96-9.15); NEUTROPHILS PERCENT AUTO 61 % (41-73); NRBC ABSOLUTE 0.00 K/mm3 (0.00-0.02); NRBC Auto 0.0 /100 WBC (0.0-0.2); Platelet Count 187 K/mm3 (150-400); RDW Coefficient Variation 15.1 % (11.7-14.2); RDW Standard Deviation 52.6 fL (35.1-46.3)
[2025-04-27 05:24] LABS: Prothrombin Time Results 28.8 Sec (9.7-11.5)
[2025-04-27 05:26] LABS: Alanine Aminotransfer (ALT/SGP 120.0 U/L (12-78); Albumin, Blood 2.7 g/dL (3.4-5.0); Albumin/Globulin Ratio 0.6 (0.8-1.8); Anion Gap 8.0 mmol/L (3-11); Aspartate Aminotrans (AST/SGOT 126.0 U/L (12-37); Bilirubin, Total 2.4 mg/dL (0.1-1.0); Blood Urea Nitrogen 47.0 mg/dL (8-24); CO2, Blood 31.0 mmol/L (21-32); Calcium, Blood 8.6 mg/dL (8.5-10.1); Chloride, Blood 93.0 mmol/L (98-108); Creatinine, Blood 1.05 mg/dL (0.60-1.20); Globulin, Blood 4.6 g/dL (2.2-4.0); Glucose, Blood 88.0 mg/dL (70-99); Potassium, Blood 3.9 mmol/L (3.5-5.5); Sodium, Blood 128.0 mmol/L (136-145); Total Protein, Blood 7.3 g/dL (6.4-8.2)
[2025-04-27 07:20] VITALS: BP 88/56
[2025-04-27 07:22] VITALS: BP 98/70
[2025-04-27 12:05] VITALS: BP 98/68
[2025-04-27 16:35] VITALS: BP 98/68
--- NOTE | 2025-04-27 17:02 | NUR ---
SHIFT SUMMARY: PT A&O X4. PLEASANT AND COOPERATIVE WITH CARE. ONE PERSON ASSIST c FWW AND GB. ABLE TO WALK AROUND UNIT THIS SHIFT. PT USING CPAP c 3L BLEED IN WITH NAPS AND NIGHT TIME. ON ROOM AIR DURING DAY. PT STILL REMAINS HYPOTENSIVE WITH SYSTOLIC IN HIGH 90'S. REDNESS NOTED TO GROIN. POWDER APPLIED PER EMAR. SKIN TEAR ON NOSE FROM CPAP. PT WILL NEED BANDAGE AT NIGHT WITH CPAP APPLICATION. PLAN FOR PT TO D/C TO SNF ONCE MEDICALLY STABLE. TELE IN PLACE RUNNING AFIB WITH HR 80'S-90'S. CALL LIGHT IN REACH. BED IN LOWEST POSITION.
[2025-04-27 19:40] VITALS: BP 90/58
[2025-04-28 00:10] VITALS: BP 100/70
[2025-04-28 04:41] VITALS: BP 98/68
[2025-04-28 05:10] LABS: BASOPHILS ABSOLUTE AUTO 0.05 K/mm3 (0.00-0.23); BASOPHILS PERCENT AUTO 1 % (0-2); EOSINOPHILS ABSOLUTE AUTO 0.07 K/mm3 (0.00-0.68); EOSINOPHILS PERCENT AUTO 1 % (0-6); Hematocrit 45.5 % (37.0-53.0); Hemoglobin 14.9 g/dL (13.5-17.5); IMMATURE GRAN ABSOLUTE AUTO 0.01 K/mm3 (0.00-0.10); IMMATURE GRAN PERCENT AUTO 0 % (0-1); LYMPHOCYTES ABSOLUTE AUTO 1.63 K/mm3 (0.84-5.20); LYMPHOCYTES PERCENT AUTO 25 % (21-46); MONOCYTES ABSOLUTE AUTO 0.71 K/mm3 (0.16-1.47); MONOCYTES PERCENT AUTO 11 % (4-13); Mean Corpuscular HGB Conc 32.7 g/dL (31.5-36.5); Mean Corpuscular Volume 93 fL (80-100); NEUTROPHILS ABSOLUTE AUTO 4.17 K/mm3 (1.96-9.15); NEUTROPHILS PERCENT AUTO 63 % (41-73); NRBC ABSOLUTE 0.00 K/mm3 (0.00-0.02); NRBC Auto 0.0 /100 WBC (0.0-0.2); Platelet Count 204 K/mm3 (150-400); RDW Coefficient Variation 15.0 % (11.7-14.2); RDW Standard Deviation 51.7 fL (35.1-46.3)
[2025-04-28 05:23] LABS: Prothrombin Time Results 21.5 Sec (9.7-11.5)
[2025-04-28 05:33] LABS: Alanine Aminotransfer (ALT/SGP 125.0 U/L (12-78); Albumin, Blood 2.9 g/dL (3.4-5.0); Albumin/Globulin Ratio 0.7 (0.8-1.8); Anion Gap 6.0 mmol/L (3-11); Aspartate Aminotrans (AST/SGOT 131.0 U/L (12-37); Bilirubin, Direct 1.2 mg/dL (0.0-0.3); Bilirubin, Indirect 0.9 mg/dL (0.1-0.7); Bilirubin, Total 2.1 mg/dL (0.1-1.0); Blood Urea Nitrogen 44.0 mg/dL (8-24); CO2, Blood 33.0 mmol/L (21-32); Calcium, Blood 8.6 mg/dL (8.5-10.1); Chloride, Blood 94.0 mmol/L (98-108); Creatinine, Blood 0.98 mg/dL (0.60-1.20); Globulin, Blood 4.4 g/dL (2.2-4.0); Glucose, Blood 98.0 mg/dL (70-99); Potassium, Blood 3.3 mmol/L (3.5-5.5); Sodium, Blood 130.0 mmol/L (136-145); Total Protein, Blood 7.3 g/dL (6.4-8.2)
--- NOTE | 2025-04-28 05:54 | NUR ---
REPORT RECEIVED FROM PREVIOUS NURSE. PT A&OX4, DENIES PAIN OR NEEDS. NO SOB NOTED. CPAP ON PLACE AT NIGHT.
[2025-04-28 08:07] VITALS: BP 98/70
[2025-04-28 11:47] VITALS: BP 105/60
[2025-04-28 15:49] VITALS: BP 100/68
--- NOTE | 2025-04-28 17:30 | NUR ---
PATIENT ALERT AND ORIENTED FOR MOST OF DAY,, COOPERATIVE WITH CARE. NO CONCERNS. CALL LIGHT WITHIN REACH.
[2025-04-28 19:46] VITALS: BP 95/72
[2025-04-29] VITALS (7 sets, daily range): BP systolic 93–113; BP diastolic 62–85
[2025-04-29 05:11] LABS: Prothrombin Time Results 18.7 Sec (9.7-11.5)
--- NOTE | 2025-04-29 05:11 | NUR ---
SHIFT SUMMARY: PT AOX4 1PA TO BSC PER DAY SHIFT. SLEPT WELL THROUGH THE NIGHT. TOLERATING MEDICATIONS WELL. SOFT BPS WHICH IS NORMAL FOR PT. TOLERATING BIPAP AND SATTING WELL. PT REPORTS FEELING MUCH BETTER AND IS HIGHLY MOTIVATED TO GET BETTER. PT IN BED RESTING. PURE WICK IN PLACE WITH GOOD OUT PUT. PT IN BED SLEEPING, BED IN LOWEST POSITION, CALL LIGHT IN REACH. CONTINUING CARE.
[2025-04-29 05:20] LABS: Alanine Aminotransfer (ALT/SGP 126.0 U/L (12-78); Albumin, Blood 2.9 g/dL (3.4-5.0); Albumin/Globulin Ratio 0.7 (0.8-1.8); Anion Gap 6.0 mmol/L (3-11); Aspartate Aminotrans (AST/SGOT 129.0 U/L (12-37); Bilirubin, Total 1.8 mg/dL (0.1-1.0); Blood Urea Nitrogen 44.0 mg/dL (8-24); CO2, Blood 31.0 mmol/L (21-32); Calcium, Blood 8.4 mg/dL (8.5-10.1); Chloride, Blood 96.0 mmol/L (98-108); Creatinine, Blood 0.98 mg/dL (0.60-1.20); Globulin, Blood 4.4 g/dL (2.2-4.0); Glucose, Blood 99.0 mg/dL (70-99); Potassium, Blood 3.4 mmol/L (3.5-5.5); Sodium, Blood 130.0 mmol/L (136-145); Total Protein, Blood 7.3 g/dL (6.4-8.2)
--- NOTE | 2025-04-29 18:07 | NUR ---
End of shift report: Patient is alert and oriented x4; pleasant and cooperative with care. Patient pure wick removed and patient now utilizing urinal. Patient with large BM today. All medications administered per EMAR. Patient denied CP, SOB, N/V/D, or pain this shift. Patient has been up to chair for meals. Possible discharge to SNF tomorrow. Patient utilizing call light appropriately; call light within reach and bed in lowest position. Will continue to monitor until next shift nurse arrives and report is given.
[2025-04-30 04:59] LABS: Prothrombin Time Results 18.2 Sec (9.7-11.5)
[2025-04-30 06:18] VITALS: BP 108/68
[2025-04-30 06:26] LABS: Alanine Aminotransfer (ALT/SGP 138.0 U/L (12-78); Albumin, Blood 3.0 g/dL (3.4-5.0); Albumin/Globulin Ratio 0.6 (0.8-1.8); Anion Gap 9.0 mmol/L (3-11); Aspartate Aminotrans (AST/SGOT 142.0 U/L (12-37); Bilirubin, Total 2.3 mg/dL (0.1-1.0); Blood Urea Nitrogen 34.0 mg/dL (8-24); CO2, Blood 26.0 mmol/L (21-32); Calcium, Blood 8.5 mg/dL (8.5-10.1); Chloride, Blood 98.0 mmol/L (98-108); Creatinine, Blood 0.74 mg/dL (0.60-1.20); Globulin, Blood 4.9 g/dL (2.2-4.0); Glucose, Blood 98.0 mg/dL (70-99); Potassium, Blood 4.2 mmol/L (3.5-5.5); Sodium, Blood 129.0 mmol/L (136-145); Total Protein, Blood 7.9 g/dL (6.4-8.2)
[2025-04-30 07:17] VITALS: BP 106/81
--- NOTE | 2025-04-30 08:03 | NUR ---
SHIFT SUMMARY PT ON BEDSIDE COMMODE AT START OF SHIFT. ONCE BACK IN BED, PT SITTING UP WATCHING TV. DENIES PAIN AT THIS TIME. APPROX 2300, PT ASKED TO BE PUT ON BIPAP SO HE COULD GO TO SLEEP. PT HAS BEEN SLEEPING PEACEFULLY. PT REMOVED BIPAP IN AM. SITTING UP IN BED NOW, WATCHING TV. PT HAS BEEN PLEASANT AND COOPERATIVE.
--- NOTE | 2025-04-30 09:00 | NUR ---
pt laying in bed awake, reading, a/ox4, pleasant and cooperative with care, follows commands well, denies pain, states he's feeling good, no complaints, and slept well last night, lungs are clear but dim in bases, resp even and unlabored, no cough noted, hrirr, tele in place runing afib with pvc's, bbb, in the 80's, no edema noted today, power glide to cadence site is clear and patent, btx4, abd round soft nontender, voids via urinal, skin c/w/d, tom fitzpatrick, got him to chair with sba, stood well, and tx himself, call light in reach.
[2025-04-30 11:22] VITALS: BP 95/77
[2025-04-30] MEDS ORDERED: TOPROL XL25 MG PO (14:29)
--- NOTE | 2025-04-30 15:37 | NUR ---
pt has been discharged to home, went over discharge instructions with him and his family member who is here to pick him up. they verbalized understanding. piv was removed intact, new mediations were faxed to ac. left with all his belongings via wheelchair with nurse in attendence.
[2025-05-01] MEDS ORDERED: Torsemide 20 MG TAB PO SCH (09:00)
== END 2025-04-30 15:54 | disposition home health service (06) | DRG 286 ==
LOC: ER 13:06 → PCU 15:56 → MEDS 04-22 22:40
PROVIDERS: Emergency Medicine; Internal Medicine; Internal Medicine Cardiovascular Disease; Nurse Practitioner Acute Care; Student in an Organized Health Care Education/Training Program; ADMIT Family Medicine
PROC: 5A09557 Assistance with Respiratory Ventilation, Greater than 96 Consecutive Hours, Continuous Positive Airway Pressure (ICD-10-PCS; principal; 2025-04-14)
PROC: 4A023N8 Measurement of Cardiac Sampling and Pressure, Bilateral, Percutaneous Approach (ICD-10-PCS; 2025-04-14)
PROC: 5A2204Z Restoration of Cardiac Rhythm, Single (ICD-10-PCS; 2025-04-17)
DX: I11.0 Hypertensive heart disease with heart failure (principal); I50.23 Acute on chronic systolic (congestive) heart failure; R57.0 Cardiogenic shock; I48.21 Permanent atrial fibrillation; N17.9 Acute kidney failure, unspecified; E87.1 Hypo-osmolality and hyponatremia; E87.3 Alkalosis; I42.0 Dilated cardiomyopathy; I25.10 Atherosclerotic heart disease of native coronary artery without angina pectoris; E78.5 Hyperlipidemia, unspecified; G47.33 Obstructive sleep apnea (adult) (pediatric); I34.0 Nonrheumatic mitral (valve) insufficiency; F10.10 Alcohol abuse, uncomplicated; I50.82 Biventricular heart failure; E66.9 Obesity, unspecified; Z86.73 Personal history of transient ischemic attack (TIA), and cerebral infarction without residual deficits; Z88.0 Allergy status to penicillin; Z79.899 Other long term (current) drug therapy; Z68.37 Body mass index [BMI] 37.0-37.9, adult; E11.9 Type 2 diabetes mellitus without complications; Z95.0 Presence of cardiac pacemaker; Z98.890 Other specified postprocedural states; K76.1 Chronic passive congestion of liver; Z99.81 Dependence on supplemental oxygen
CPT/HCPCS: 36415; 71045; 76705; 76937; 80048; 80053; 80162; 82248; 82803; 82947; 83735; 83880; 84100; 84443; 84484; 85025; 85610; 87040; 92610; 92960; 93005; 93010; 93460; 94660; 94760; 94761; 94762; 96365; 96376; 97110; 97116; 97161; 97165; 97530; 97530-CQ; 97535; 99285-25; A9270; C1751; C1769; C1887; C1894; C8929; J0282; J1160; J1644; J1815; J1938; J2003; J2704; J7030; J7040; J7050; J7060; Q9957; Q9967

== ENCOUNTER 2025-05-07 12:44 | Inpatient (IN) | payer MEDICARE, OTHER ==
[~2025-05-07] VITALS: Ht 182.9 cm; Wt 104.0 kg
[2025-05-07] VITALS (8 sets, daily range): BP systolic 79–102; BP diastolic 59–77
[~2025-05-07 12:44] MED LIST changes: -Etomidate 2MG / ML 10ML Vial IV ONE; -Lidocaine HCl 2% 20 MG/ML 5ML SYR IV ONE; -Propofol 10mg/ml 20 ml Vial (Procedural) IV ONE; +TOPROL XL25 MG PO
[2025-05-07 14:36] LABS: Prothrombin Time Results 74.6 Sec (9.7-11.5)
--- NOTE | 2025-05-07 18:10 | NUR ---
PCU Admit / End of Shift Pt brought to PCU-12 by dayanara from ER @ approx 1630. Pt A&O x4, able to stand & shuffle from tejalrney to PCU bed w/ 1 person SBA. Pt BP low. Pt reporting BP low at baseline. Monitor showing afib, HR 100-120s w/ brief increase to 150s. w/ order for one time dose of IV digoxin - medication given per order. Pt HR 100-120s.
[2025-05-08] VITALS (7 sets, daily range): BP systolic 87–103; BP diastolic 59–79
--- NOTE | 2025-05-08 05:19 | NUR ---
SHIFT SUMMARY PT A&O X4, CLAM, COOPERATIVE TO CARE. HR IN THE 100'S-110'S, AFIB, HE DENIES CP/PRESSURE, NUMB/TINGLING, SBP SOFT IN THE 90'S-100'S, PER PT HIS SBP IS USUALLY IN THE 90'S. MAP >65. PT WAS ON RA AT START OF SHIFT, SPO2 >92%, HE DENIED SOB. PT USES CPAP AT NIGHT FOR SLEEP. PT PLACED ON CPAP WITH 3L BLEED IN. PT HAS PUREWICK IN PLACE, YELLOW URINE. PT DIURESING WELL. PT RESTING IN BED AT THIS TIME. CALL LIGHT IN REACH. WILL MONITOR PT AND REPORT TO ONCOMING RN.
[2025-05-08 05:27] LABS: BASOPHILS ABSOLUTE AUTO 0.02 K/mm3 (0.00-0.23); BASOPHILS PERCENT AUTO 0 % (0-2); EOSINOPHILS ABSOLUTE AUTO 0.02 K/mm3 (0.00-0.68); EOSINOPHILS PERCENT AUTO 0 % (0-6); Hematocrit 41.2 % (37.0-53.0); Hemoglobin 13.4 g/dL (13.5-17.5); IMMATURE GRAN ABSOLUTE AUTO 0.03 K/mm3 (0.00-0.10); IMMATURE GRAN PERCENT AUTO 0 % (0-1); LYMPHOCYTES ABSOLUTE AUTO 1.73 K/mm3 (0.84-5.20); LYMPHOCYTES PERCENT AUTO 16 % (21-46); MONOCYTES ABSOLUTE AUTO 1.25 K/mm3 (0.16-1.47); MONOCYTES PERCENT AUTO 12 % (4-13); Mean Corpuscular HGB Conc 32.5 g/dL (31.5-36.5); Mean Corpuscular Volume 92 fL (80-100); NEUTROPHILS ABSOLUTE AUTO 7.74 K/mm3 (1.96-9.15); NEUTROPHILS PERCENT AUTO 72 % (41-73); NRBC ABSOLUTE 0.00 K/mm3 (0.00-0.02); NRBC Auto 0.0 /100 WBC (0.0-0.2); Platelet Count 238 K/mm3 (150-400); RDW Coefficient Variation 15.9 % (11.7-14.2); RDW Standard Deviation 52.9 fL (35.1-46.3)
[2025-05-08 05:55] LABS: Alanine Aminotransfer (ALT/SGP 267.0 U/L (12-78); Albumin, Blood 3.2 g/dL (3.4-5.0); Albumin/Globulin Ratio 0.8 (0.8-1.8); Anion Gap 15.0 mmol/L (3-11); Aspartate Aminotrans (AST/SGOT 455.0 U/L (12-37); Bilirubin, Total 2.2 mg/dL (0.1-1.0); Blood Urea Nitrogen 84.0 mg/dL (8-24); CO2, Blood 25.0 mmol/L (21-32); Calcium, Blood 8.8 mg/dL (8.5-10.1); Chloride, Blood 93.0 mmol/L (98-108); Creatinine, Blood 1.81 mg/dL (0.60-1.20); Globulin, Blood 4.2 g/dL (2.2-4.0); Glucose, Blood 102.0 mg/dL (70-99); Potassium, Blood 4.3 mmol/L (3.5-5.5); Sodium, Blood 129.0 mmol/L (136-145); Total Protein, Blood 7.4 g/dL (6.4-8.2)
[2025-05-08 05:59] LABS: Prothrombin Time Results 73.0 Sec (9.7-11.5)
--- NOTE | 2025-05-08 18:40 | NUR ---
Shift Summary Pt alert, oriented x4; calm and cooperative with care. Pt resting in bed, up with 1 person assist with walker to chair. Pt denies pain, chest pain/pressure, sob, nausea, dizziness and numb/tingling. Lasix, urine output 2.4l. Tele afib 100-110's at rest, bp soft MAP remains >65 during shift. Held metoprolol and zaroxolyn this am, when BP trending up discussed with Dr Monroe, administered this afternoon. Spo2 >90% on ra while awake, while sleeping pt on cpap with 3l bleed in. Abd soft, nontender, +bt. Edema noted t/o. Call light within reach.
[2025-05-09 03:39] VITALS: BP 108/73
[2025-05-09 05:14] LABS: BASOPHILS ABSOLUTE AUTO 0.02 K/mm3 (0.00-0.23); BASOPHILS PERCENT AUTO 0 % (0-2); EOSINOPHILS ABSOLUTE AUTO 0.05 K/mm3 (0.00-0.68); EOSINOPHILS PERCENT AUTO 1 % (0-6); Hematocrit 40.6 % (37.0-53.0); Hemoglobin 13.2 g/dL (13.5-17.5); IMMATURE GRAN ABSOLUTE AUTO 0.03 K/mm3 (0.00-0.10); IMMATURE GRAN PERCENT AUTO 0 % (0-1); LYMPHOCYTES ABSOLUTE AUTO 1.30 K/mm3 (0.84-5.20); LYMPHOCYTES PERCENT AUTO 16 % (21-46); MONOCYTES ABSOLUTE AUTO 0.87 K/mm3 (0.16-1.47); MONOCYTES PERCENT AUTO 11 % (4-13); Mean Corpuscular HGB Conc 32.5 g/dL (31.5-36.5); Mean Corpuscular Volume 94 fL (80-100); NEUTROPHILS ABSOLUTE AUTO 6.05 K/mm3 (1.96-9.15); NEUTROPHILS PERCENT AUTO 73 % (41-73); NRBC ABSOLUTE 0.00 K/mm3 (0.00-0.02); NRBC Auto 0.0 /100 WBC (0.0-0.2); Platelet Count 196 K/mm3 (150-400); RDW Coefficient Variation 15.9 % (11.7-14.2); RDW Standard Deviation 53.6 fL (35.1-46.3)
--- NOTE | 2025-05-09 05:32 | NUR ---
SHIFT SUMMARY PT A&O X4, CALM, COOPERATIVE TO CARE. HR IN THE 110'S-120'S, AFIB. PT DENIES ANY CP/PRESSURE, NUMB/TINGLING, SBP SOFT IN THE 90'S-100'S. MAP >65. PT DID HAVE ONE EPISODE T/O SHIFT WHERE HIS HR INCREASED TO 180'S. PT WAS TRYING TO REMOVE CPAP A THIS TIME AND STATED HE WAS HAVING A BAD DREAM. PTS HR DECREASED BACK DOWN TO THE 110'S AFTER CALMING DOWN. SPO2 >92%. PT ON RA WHILE AWAKE. CPAP AT BEDSIDE FOR SLEEP. HE HAS PUREWICK IN PLACE, PUREWICK CHANGED THIS AM. PT DIURESING WELL. HE RESTING IN BED AT HIS TIME. CALL LIGHT IN REACH. WILL MONITOR PT AND REPORT TO KIKI RUGGIERO.
[2025-05-09 05:36] LABS: Prothrombin Time Results 64.7 Sec (9.7-11.5)
[2025-05-09 05:54] LABS: Alanine Aminotransfer (ALT/SGP 281.0 U/L (12-78); Albumin, Blood 3.0 g/dL (3.4-5.0); Albumin/Globulin Ratio 0.7 (0.8-1.8); Anion Gap 9.0 mmol/L (3-11); Aspartate Aminotrans (AST/SGOT 387.0 U/L (12-37); Bilirubin, Total 1.7 mg/dL (0.1-1.0); Blood Urea Nitrogen 75.0 mg/dL (8-24); CO2, Blood 32.0 mmol/L (21-32); Calcium, Blood 8.6 mg/dL (8.5-10.1); Chloride, Blood 95.0 mmol/L (98-108); Creatinine, Blood 1.47 mg/dL (0.60-1.20); Globulin, Blood 4.3 g/dL (2.2-4.0); Glucose, Blood 102.0 mg/dL (70-99); Potassium, Blood 3.4 mmol/L (3.5-5.5); Sodium, Blood 133.0 mmol/L (136-145); Total Protein, Blood 7.3 g/dL (6.4-8.2)
[2025-05-09 07:56] VITALS: BP 100/76
[2025-05-09 11:51] VITALS: BP 102/69
[2025-05-09 15:42] VITALS: BP 101/67
--- NOTE | 2025-05-09 16:38 | NUR ---
PT IS A&Ox4 AND ABLE TO MAKE NEEDS KNOWN. HE IS ON RA WHILE AWAKE AND USES THE CPAP WHILE ASLEEP W/O2 SATS > 92%. HE IS A SBA FOR AMBULATION AND HE USES A FWW. NO NEEDS OR CONCERNS NOTED @ THIS TIME. BED IN LOW POSITION, CALL LIGHT AND PERSONAL BELONGINGS IN REACH.
[2025-05-09 17:51] VITALS: BP 95/59
[2025-05-09] MEDS ORDERED: Potassium Chloride 10 Meq Tablet SA PO ONE (19:00)
[2025-05-09 19:24] VITALS: BP 82/65
[2025-05-10] VITALS (8 sets, daily range): BP systolic 91–133; BP diastolic 51–103
--- NOTE | 2025-05-10 05:01 | NUR ---
SHIFT SUMMARY PT A&O X4, CALM, COOPERATIVE TO CARE. HR IN THE 100'S-110'S T/O NIGHT, AFIB. PT DID HAVE TWO RUNS OF VTACH T/O NIGHT CONSISTING OF AN 8 BEAT RUN AND 20 BEAT RUN. PT ASLEEP DURING BOTH. PT DENIED ANY CP/PRESSURE OR PALPATIONS DURING THE EVENTS. SBP RANGING FROM 80'S-110'S. MAP >65. PT ON CPAP T/O NIGHT WITH 3L BLEED IN. RA ON WHILE AWAKE. SPO2 >92%. PT HAS PUREWICK IN PLACE. DIURESING WELL. PT RESTING IN BED AT THIS TIME. CALL LIGHT IN REACH. WILL MONITOR PT AND REPORT TO ONCOMING RN.
[2025-05-10 05:10] LABS: BASOPHILS ABSOLUTE AUTO 0.03 K/mm3 (0.00-0.23); BASOPHILS PERCENT AUTO 1 % (0-2); EOSINOPHILS ABSOLUTE AUTO 0.10 K/mm3 (0.00-0.68); EOSINOPHILS PERCENT AUTO 2 % (0-6); Hematocrit 43.9 % (37.0-53.0); Hemoglobin 14.3 g/dL (13.5-17.5); IMMATURE GRAN ABSOLUTE AUTO 0.02 K/mm3 (0.00-0.10); IMMATURE GRAN PERCENT AUTO 0 % (0-1); LYMPHOCYTES ABSOLUTE AUTO 1.27 K/mm3 (0.84-5.20); LYMPHOCYTES PERCENT AUTO 19 % (21-46); MONOCYTES ABSOLUTE AUTO 0.61 K/mm3 (0.16-1.47); MONOCYTES PERCENT AUTO 9 % (4-13); Mean Corpuscular HGB Conc 32.6 g/dL (31.5-36.5); Mean Corpuscular Volume 92 fL (80-100); NEUTROPHILS ABSOLUTE AUTO 4.51 K/mm3 (1.96-9.15); NEUTROPHILS PERCENT AUTO 69 % (41-73); NRBC ABSOLUTE 0.00 K/mm3 (0.00-0.02); NRBC Auto 0.0 /100 WBC (0.0-0.2); Platelet Count 189 K/mm3 (150-400); RDW Coefficient Variation 16.1 % (11.7-14.2); RDW Standard Deviation 52.3 fL (35.1-46.3)
[2025-05-10 05:37] LABS: Alanine Aminotransfer (ALT/SGP 235.0 U/L (12-78); Albumin, Blood 3.1 g/dL (3.4-5.0); Albumin/Globulin Ratio 0.7 (0.8-1.8); Anion Gap 10.0 mmol/L (3-11); Aspartate Aminotrans (AST/SGOT 235.0 U/L (12-37); Bilirubin, Total 2.0 mg/dL (0.1-1.0); Blood Urea Nitrogen 53.0 mg/dL (8-24); CO2, Blood 34.0 mmol/L (21-32); Calcium, Blood 8.5 mg/dL (8.5-10.1); Chloride, Blood 92.0 mmol/L (98-108); Creatinine, Blood 1.11 mg/dL (0.60-1.20); Globulin, Blood 4.7 g/dL (2.2-4.0); Glucose, Blood 100.0 mg/dL (70-99); Potassium, Blood 3.3 mmol/L (3.5-5.5); Sodium, Blood 133.0 mmol/L (136-145); Total Protein, Blood 7.8 g/dL (6.4-8.2)
--- NOTE | 2025-05-10 15:21 | NUR ---
MET WITH PT THIS AFTERNOON. AMBAR WAS PLEASANT AND CONVERSATIONAL. A/O X4. REVIEWED CODE STATUS OPTIONS, FULL CODE VS DNR. PT STATED, "IF I'M GONE, DON'T BRING ME BACK." THIS PC RN THEN CONFIRMED WITH PT HE WISHES TO CHANGE CODE STATUS TO DNR. AMBAR IS AGREEABLE TO GOALS OF CARE CONVERSATION TOMORROW 05/11/25. HE ASKED FOR THIS PC RN TO CONTACT HIS RONALD BRADY (KETTY) SO SHE COULD BE PRESENT FOR CONVERSATION. THIS PC RN LEFT A VOICEMAIL FOR KETTY ON [phone] REQUESTING A CALL BACK TO SET UP A MEETING TOMORROW BETWEEN [phone]. UPDATED PROVIDER BY PHONE. VERBAL ORDER RCV'D TO CHANGE CODE STATUS TO DNR. ORDER PLACED ACCORDINGLY. PROVIDER IS AWARE OF PENDING [facility] MEETING TOMORROW. PRIMARY AND FORM SETTER METAL RO[address] FORMS'S UPDATED.
[2025-05-10 16:33] LABS: Anion Gap 8.0 mmol/L (3-11); Blood Urea Nitrogen 61.0 mg/dL (8-24); CO2, Blood 41.0 mmol/L (21-32); Calcium, Blood 8.8 mg/dL (8.5-10.1); Chloride, Blood 86.0 mmol/L (98-108); Creatinine, Blood 1.2 mg/dL (0.60-1.20); Glucose, Blood 104.0 mg/dL (70-99); Magnesium, Blood 2.0 mg/dL (1.6-2.4); Potassium, Blood 3.2 mmol/L (3.5-5.5); Sodium, Blood 132.0 mmol/L (136-145)
--- NOTE | 2025-05-10 16:41 | NUR ---
PT IS A&Ox4 AND ABLE TO MAKE NEEDS KNOWN. HE IS ON RA W/O2 SATS > 92%. HE IS A SBA W/FWW FOR AMBULATION. HE IS IN A-FIB RVR W/RATE IN THE 100'S - 120'S. NO NEEDS OR CONCERNS NOTED @ THIS TIME. HE IS SITTING UP IN THE RECLINER IN THE ROOM. CALL LIGHT AND PERSONAL BELONGINGS IN REACH.
--- NOTE | 2025-05-10 17:26 | NUR ---
SCHEDULED GOALS OF CARE MEETING WITH FAMILY TOMORROW 05/11/25 @ 1100. UPDATED PRIMARY RN.
[2025-05-11] VITALS (7 sets, daily range): BP systolic 93–111; BP diastolic 56–85
--- NOTE | 2025-05-11 00:48 | NUR ---
PT HAD 26 BEAT RUN OF VTACH. PT ASYMPOTAMTIC AND SLEPT THROUGH RUN OF VTACH. PT DENIES CP/PALPITATIONS. PATEL RIVERA MADE AWARE. NO ORDERS AT THIS TIME.
--- NOTE | 2025-05-11 05:36 | NUR ---
SHIFT SUMMARY PT ALERT AND ORIENTED X 4. PT WITH 26 RUN OF VTACH-ASYMPTOMATIC. PT REMAINS IN AFIB WITH HR 90S-1OO. VSS OTHERWISE. PT ON RA WHEN AWAKE AND CPAP WITH 3L BLEED IN AT NIGHT MAINTAINING SATS ABOVE 90%. PT SLEPT WELL OVERNIGHT. ADEQUATE URINE OUTPUT. PT ABLE TO MAKE NEEDS KNOWN.
[2025-05-11 06:17] LABS: BASOPHILS ABSOLUTE AUTO 0.03 K/mm3 (0.00-0.23); BASOPHILS PERCENT AUTO 1 % (0-2); EOSINOPHILS ABSOLUTE AUTO 0.13 K/mm3 (0.00-0.68); EOSINOPHILS PERCENT AUTO 2 % (0-6); Hematocrit 46.2 % (37.0-53.0); Hemoglobin 14.7 g/dL (13.5-17.5); IMMATURE GRAN ABSOLUTE AUTO 0.01 K/mm3 (0.00-0.10); IMMATURE GRAN PERCENT AUTO 0 % (0-1); LYMPHOCYTES ABSOLUTE AUTO 1.45 K/mm3 (0.84-5.20); LYMPHOCYTES PERCENT AUTO 22 % (21-46); MONOCYTES ABSOLUTE AUTO 0.70 K/mm3 (0.16-1.47); MONOCYTES PERCENT AUTO 11 % (4-13); Mean Corpuscular HGB Conc 31.8 g/dL (31.5-36.5); Mean Corpuscular Volume 93 fL (80-100); NEUTROPHILS ABSOLUTE AUTO 4.14 K/mm3 (1.96-9.15); NEUTROPHILS PERCENT AUTO 64 % (41-73); NRBC ABSOLUTE 0.00 K/mm3 (0.00-0.02); NRBC Auto 0.0 /100 WBC (0.0-0.2); Platelet Count 198 K/mm3 (150-400); RDW Coefficient Variation 16.0 % (11.7-14.2); RDW Standard Deviation 52.2 fL (35.1-46.3)
[2025-05-11 06:30] LABS: Prothrombin Time Results 18.8 Sec (9.7-11.5)
[2025-05-11 06:39] LABS: Magnesium, Blood 2.1 mg/dL (1.6-2.4)
[2025-05-11 06:49] LABS: Alanine Aminotransfer (ALT/SGP 176 U/L (12-78); Albumin, Blood 3.0 g/dL (3.4-5.0); Albumin/Globulin Ratio 0.7 (0.8-1.8); Anion Gap Unable to Calculate mmol/L (3-11); Aspartate Aminotrans (AST/SGOT 138 U/L (12-37); Bilirubin, Total 2.1 mg/dL (0.1-1.0); Blood Urea Nitrogen 43 mg/dL (8-24); Calcium, Blood 8.8 mg/dL (8.5-10.1); Chloride, Blood 90 mmol/L (98-108); Creatinine, Blood 0.99 mg/dL (0.60-1.20); Globulin, Blood 4.6 g/dL (2.2-4.0); Glucose, Blood 89 mg/dL (70-99); Potassium, Blood 3.4 mmol/L (3.5-5.5); Sodium, Blood 134 mmol/L (136-145); Total Protein, Blood 7.6 g/dL (6.4-8.2)
[2025-05-11 06:51] LABS: CO2, Blood >45 mmol/L (21-32)
[2025-05-11] MEDS ORDERED: Potassium Chloride 10 Meq Tablet SA PO ONE ×2 (08:05→23:00)
--- NOTE | 2025-05-11 08:40 | NUR ---
UPDATE DR. ZAVALA AT BEDSIDE THIS AM. ORDERS TO HOLD LASIX THIS AM AND REEVALUATE AFTERNOON DOSE. ORDERS TO REPLACE POTASSIUM. PT ASSISTED UP TO CHAIR FOR BREAKFAST WITH SBA AND FWW. BP SOFT, BUT MAP >65. HR AFIB 100'S. O2 SATS >90% ON RA. PT DENIES ANY PAIN THIS AM. PLAN FOR MEETING WITH FAMILY AND PALLIATIVE CARE AT 1100 TODAY.
--- NOTE | 2025-05-11 09:46 | NUR ---
UPDATE BED ASSIGNMENT ON MEDICAL FLOOR PROVIDED. REPORT GIVEN TO HOWIE RUGGIERO. PT TAKEN VIA WC WITH ALL OF HIS BELONGINGS. PT'S SISTER KETTY CALLED AND NOTIFIED OF ROOM CHANGE.
--- NOTE | 2025-05-11 10:00 | NUR ---
PT TRANSFERED FROM [facility] TO ROOM 357. REPORT RECIEVED FROM MARCO RUGGIERO. PT IS A/OX4. SBA FROM WHEELCHAIR TO BED. CALL LIGHT IN REACH.
--- NOTE | 2025-05-11 13:12 | NUR ---
Palliative care GOC visit: Met with pt and sister Lety in the room. Dr. Velez and Dr. Schaefer present for meeting. Pt is able to discuss GOC. After discussion, Pt wants to discharge to a jail with [facility]. Pt is agreeable to LTC at facility or foster home. Pt does have some finances available for out of pocket expenses. Pt wants his health to be optimized prior to discharge. Notified, ,CM and Tunnel Elastic Operator [employer] to determine eligibility. Notified [facility].
--- NOTE | 2025-05-11 14:37 | NUR ---
PALLIATIVE CARE VISIT: PT EDUCATED ON POLST. DISCUSSED CPR/DNR. PT CHOSE DNR, COMFORT MEASURES ONLY. PT SIGNED. MD SIGNED. POLST SENT TO [facility] AND [facility] VIA FAX. PLACED COPY ON CHART.
[2025-05-11 15:54] LABS: Anion Gap 3.0 mmol/L (3-11); Blood Urea Nitrogen 46.0 mg/dL (8-24); CO2, Blood 42.0 mmol/L (21-32); Calcium, Blood 9.1 mg/dL (8.5-10.1); Chloride, Blood 89.0 mmol/L (98-108); Creatinine, Blood 1.13 mg/dL (0.60-1.20); Glucose, Blood 147.0 mg/dL (70-99); Potassium, Blood 3.1 mmol/L (3.5-5.5); Sodium, Blood 131.0 mmol/L (136-145)
--- NOTE | 2025-05-11 17:31 | NUR ---
SHIFT SUMMARY PT IS A/OX4. SBA WITH FWW. MEETING WITH PALLIATIVE CARE, PHYSICANS, PATIENT, AND FAMILY THIS MORNING DISCUSSING PLANS OF CARE. PT IS ON RA DURING THE DAY, USING CPAP WHILE ASLEEP. ON TELE RUNNING AFIB IN THE 'S. PURWICK IN PLACE DRAINING CLEAR, YELLOW URINE. PT IS PLEASANT AND COOPERATIVE WITH CARE AND CALLS APPROPRIATLEY USING THE CALL LIGHT.
[2025-05-11 21:50] LABS: Magnesium, Blood 2.1 mg/dL (1.6-2.4); Potassium, Blood 3.4 mmol/L (3.5-5.5)
--- NOTE | 2025-05-11 23:39 | NUR ---
TELE TELE NOTIFIED RN OF 13 BEAT RUN OF VTACH. VITALS CHECKED AND STABLE, PT ASYMPTOMATIC, RN TRIED TO CALL PROVIDER AT 2310. NO ANSWER. RN WAITED 5 MIN AND TRIED AGAIN NO ANSWER. RN WAITED 20 MIN TRIED AGAIN NO ANSWER. 2345 RN MADE CONTACT. PROVIDER STATED IF PT IS ASYMPTOMATIC AND THE VTACH IS NOT SUSTAINED THAT THERE IS NO NEED TO NOTIFY PROVIDER.
[2025-05-12 03:36] VITALS: BP 133/92
--- NOTE | 2025-05-12 04:59 | NUR ---
NIGHT SUMMARY: PT AOX4. HAD TWO EPISODES OF NONSUSTAINED RUNS OF VTACH ON TELE. K AND MG LEVEL CHECKED OVERNIGHT AND K REPLACED. CPAP OVERNIGHT. PUREWICK IN PLACE. CALL LIGHT WITHIN REACH AND BED IN LOW POSITION.
[2025-05-12 06:10] LABS: BASOPHILS ABSOLUTE AUTO 0.04 K/mm3 (0.00-0.23); BASOPHILS PERCENT AUTO 1 % (0-2); EOSINOPHILS ABSOLUTE AUTO 0.15 K/mm3 (0.00-0.68); EOSINOPHILS PERCENT AUTO 2 % (0-6); Hematocrit 45.8 % (37.0-53.0); Hemoglobin 14.9 g/dL (13.5-17.5); IMMATURE GRAN ABSOLUTE AUTO 0.03 K/mm3 (0.00-0.10); IMMATURE GRAN PERCENT AUTO 0 % (0-1); LYMPHOCYTES ABSOLUTE AUTO 1.71 K/mm3 (0.84-5.20); LYMPHOCYTES PERCENT AUTO 24 % (21-46); MONOCYTES ABSOLUTE AUTO 0.97 K/mm3 (0.16-1.47); MONOCYTES PERCENT AUTO 13 % (4-13); Mean Corpuscular HGB Conc 32.5 g/dL (31.5-36.5); Mean Corpuscular Volume 93 fL (80-100); NEUTROPHILS ABSOLUTE AUTO 4.37 K/mm3 (1.96-9.15); NEUTROPHILS PERCENT AUTO 60 % (41-73); NRBC ABSOLUTE 0.00 K/mm3 (0.00-0.02); NRBC Auto 0.0 /100 WBC (0.0-0.2); Platelet Count 178 K/mm3 (150-400); RDW Coefficient Variation 16.0 % (11.7-14.2); RDW Standard Deviation 53.7 fL (35.1-46.3)
[2025-05-12 06:16] LABS: Alanine Aminotransfer (ALT/SGP 125.0 U/L (12-78); Albumin, Blood 2.8 g/dL (3.4-5.0); Albumin/Globulin Ratio 0.6 (0.8-1.8); Anion Gap 8.0 mmol/L (3-11); Aspartate Aminotrans (AST/SGOT 81.0 U/L (12-37); Bilirubin, Total 1.9 mg/dL (0.1-1.0); Blood Urea Nitrogen 36.0 mg/dL (8-24); CO2, Blood 35.0 mmol/L (21-32); Calcium, Blood 8.6 mg/dL (8.5-10.1); Chloride, Blood 95.0 mmol/L (98-108); Creatinine, Blood 1.0 mg/dL (0.60-1.20); Globulin, Blood 4.4 g/dL (2.2-4.0); Glucose, Blood 85.0 mg/dL (70-99); Potassium, Blood 3.3 mmol/L (3.5-5.5); Sodium, Blood 135.0 mmol/L (136-145); Total Protein, Blood 7.2 g/dL (6.4-8.2)
[2025-05-12 07:23] VITALS: BP 104/74
[2025-05-12] MEDS ORDERED: ELIQUIS5 M2 PO (14:31)
[2025-05-12] MEDS ORDERED: DIGOX250 MCG PO (14:32)
[2025-05-12] MEDS ORDERED: POTCHL20ER PO (14:32)
[2025-05-12] MEDS ORDERED: SPIR25 PO (14:33)
[2025-05-12] MEDS ORDERED: TORSE20 PO (14:34)
--- NOTE | 2025-05-12 15:19 | NUR ---
PATIENT D/C'D TO HOME WITH [facility]. DC INSTRUCTIONS AND EDUCATION DISCUSSED WITH PATIENT AND FAMILY AND COPY PROVIDED. RX MEDICATIONS FAXED TO [facility]. PATIENT DENIES ANY FURTHER QUESTIONS OR CONCERNS. BELONGINGS TAKEN HOME BY FAMILY.
== END 2025-05-12 15:16 | disposition hospice, home (50) | DRG 682 ==
LOC: ER 12:44 → PCU 14:57 → MEDS 16:26 → PCU 16:30 → MEDS 05-11 09:53
PROVIDERS: Family Medicine; Nurse Practitioner Acute Care; Student in an Organized Health Care Education/Training Program; ADMIT Internal Medicine
PROC: 5A09357 Assistance with Respiratory Ventilation, Less than 24 Consecutive Hours, Continuous Positive Airway Pressure (ICD-10-PCS; principal; 2025-05-07)
DX: N17.9 Acute kidney failure, unspecified (principal); I50.23 Acute on chronic systolic (congestive) heart failure; E87.1 Hypo-osmolality and hyponatremia; I50.22 Chronic systolic (congestive) heart failure; I42.0 Dilated cardiomyopathy; I42.8 Other cardiomyopathies; I48.21 Permanent atrial fibrillation; E87.3 Alkalosis; Z66 Do not resuscitate; I25.10 Atherosclerotic heart disease of native coronary artery without angina pectoris; G47.33 Obstructive sleep apnea (adult) (pediatric); E78.5 Hyperlipidemia, unspecified; E66.9 Obesity, unspecified; R79.1 Abnormal coagulation profile; I08.1 Rheumatic disorders of both mitral and tricuspid valves; I11.0 Hypertensive heart disease with heart failure; Z90.89 Acquired absence of other organs; Z68.37 Body mass index [BMI] 37.0-37.9, adult; Z95.810 Presence of automatic (implantable) cardiac defibrillator; Z86.73 Personal history of transient ischemic attack (TIA), and cerebral infarction without residual deficits; Z88.0 Allergy status to penicillin; Z79.01 Long term (current) use of anticoagulants; Z79.899 Other long term (current) drug therapy
CPT/HCPCS: 36415; 71046; 80048; 80053; 80162; 83735; 83880; 84132; 85025; 85610; 93005; 93010; 94660; 94762; 96374; 97110; 97116; 97162; 97165; 97530; 97530-CQ; 99285-25; A6590; A9270; J1160; J1938